=== PATIENT | male | born 1950 | race Caucasian/White ===

== ENCOUNTER → 2019-06-08 10:52 | Outpatient (BNVA) | payer MEDICARE, OTHER, SELFPAY | PROVIDERS: Family Provider Nurse Practitioner; PCP Nurse Practitioner; Visit Provider Nurse Practitioner | DX: I10 Essential (primary) hypertension (principal); J44.9 Chronic obstructive pulmonary disease, unspecified; E78.2 Mixed hyperlipidemia; K21.9 Gastro-esophageal reflux disease without esophagitis; G31.84 Mild cognitive impairment of uncertain or unknown etiology; J32.2 Chronic ethmoidal sinusitis; J30.1 Allergic rhinitis due to pollen | CPT/HCPCS: 80053; 80061; 81000 ==

== ENCOUNTER → 2019-12-14 09:35 | Outpatient (BNVA) | payer MEDICARE, OTHER, SELFPAY | PROVIDERS: Family Provider Nurse Practitioner; PCP Nurse Practitioner; Visit Provider Nurse Practitioner | DX: I10 Essential (primary) hypertension (principal); E78.2 Mixed hyperlipidemia; G31.84 Mild cognitive impairment of uncertain or unknown etiology; K21.9 Gastro-esophageal reflux disease without esophagitis; J30.1 Allergic rhinitis due to pollen; J44.9 Chronic obstructive pulmonary disease, unspecified | CPT/HCPCS: 80053; 80061 ==

== ENCOUNTER → 2020-05-22 09:07 | Outpatient (BNVA) | payer MEDICARE, OTHER, SELFPAY | PROVIDERS: Family Provider Nurse Practitioner; PCP Nurse Practitioner; Visit Provider Nurse Practitioner | DX: I10 Essential (primary) hypertension (principal); E78.2 Mixed hyperlipidemia; J44.9 Chronic obstructive pulmonary disease, unspecified; G31.84 Mild cognitive impairment of uncertain or unknown etiology; K21.9 Gastro-esophageal reflux disease without esophagitis; J30.1 Allergic rhinitis due to pollen | CPT/HCPCS: 80053; 80061 ==

== ENCOUNTER → 2020-05-31 15:40 | Outpatient (BNVA) | payer MEDICARE, OTHER, SELFPAY | PROVIDERS: Family Provider Nurse Practitioner; PCP Nurse Practitioner; Visit Provider Urology | DX: N39.9 Disorder of urinary system, unspecified (principal); Z12.5 Encounter for screening for malignant neoplasm of prostate; R33.9 Retention of urine, unspecified; R97.20 Elevated prostate specific antigen [PSA]; N52.9 Male erectile dysfunction, unspecified | CPT/HCPCS: 81003; G0103 ==

== ENCOUNTER 2020-09-19 09:44 | Outpatient (CLI) | payer MEDICARE, OTHER, SELFPAY ==
--- NOTE | 2020-09-19 10:03 | XR_ITS ---
WS: [id number] XR knee LT 3V* [id number] REASON FOR EXAM: L KNEE PAIN FINDINGS: No diffuse bony abnormality. No focal bone lesion. The medial knee joint space is well preserved. Mild subchondral sclerosis. There is mild narrowing of the lateral knee joint space. Mild subchondral sclerosis. The patellofemoral joint space is relatively well-preserved. Moderate enthesophyte at the attachment of the quadriceps tendon. XR/XR knee LT 3V* [id number] IMPRESSION: Mild changes of osteoarthritis.
== END 2020-09-19 09:45 | disposition home or self-care (01) ==
LOC: RAD 09:56
PROVIDERS: PCP Nurse Practitioner; Visit Provider Nurse Practitioner Family
DX: M25.562 Pain in left knee (principal)
CPT/HCPCS: 73562

== ENCOUNTER → 2020-11-15 10:21 | Outpatient (BNVA) | payer MEDICARE, OTHER, SELFPAY | PROVIDERS: PCP Nurse Practitioner; Visit Provider Nurse Practitioner | DX: I10 Essential (primary) hypertension (principal); E78.2 Mixed hyperlipidemia; G31.84 Mild cognitive impairment of uncertain or unknown etiology; K21.9 Gastro-esophageal reflux disease without esophagitis; J30.1 Allergic rhinitis due to pollen; J44.9 Chronic obstructive pulmonary disease, unspecified | CPT/HCPCS: 80053; 80061 ==

== ENCOUNTER 2021-01-10 12:55 | Outpatient (CLI) | payer MEDICARE, OTHER, SELFPAY ==
--- NOTE | 2021-01-10 13:30 | CT_ITS ---
WS: [id number] CT CHEST TECHNIQUE: Noncontrast CT of the chest with coronal and sagittal reformatted images. CLINICAL INFORMATION: J44.9 - Chronic obstructive pulmonary disease, unspecified COMPARISON: None. DLP: 941.[address] scans at [facility] use at least one of these dose optimization techniques: automated e xposure control; mA and/or kV adjustment per patient size (includes targeted exams where dose is matc hed to clinical indication); or iterative reconstruction. FINDINGS: Mild chronic emphysematous changes. No acute pulmonary infiltrates. No focal pneumonia. Slight bibasi lar atelectasis. A few calcified granulomas. Aortic coronary calcification. No mediastinal or hilar l ymphadenopathy. No axillary lymphadenopathy. Adrenal glands are normal. Hypertrophic changes thoracic spine. Tiny 3 mm noncalcified nodule right u pper lobe. Bibasilar atelectasis. Small amount of fluid or pleural thickening along the left fissure. CT/CT chest wo con [id number] IMPRESSION: 1. Mild chronic emphysematous changes. No acute pulmonary infiltrates. 2. Slight bibasilar atelectasis. Small amount of pleural fluid or thickening a long the left fissure. 3. Coronary calcification. 4. No other significant findings.
== END 2021-01-10 12:56 | disposition home or self-care (01) ==
LOC: CT 12:59
PROVIDERS: PCP Nurse Practitioner; Visit Provider Nurse Practitioner
DX: J44.9 Chronic obstructive pulmonary disease, unspecified (principal); J98.11 Atelectasis; I25.10 Atherosclerotic heart disease of native coronary artery without angina pectoris
CPT/HCPCS: 71250

== ENCOUNTER → 2021-05-30 10:10 | Outpatient (BNVA) | payer MEDICARE, OTHER, SELFPAY | PROVIDERS: PCP Nurse Practitioner; Visit Provider Nurse Practitioner | DX: I10 Essential (primary) hypertension (principal); E55.9 Vitamin D deficiency, unspecified | CPT/HCPCS: 80053; 80061; 81000; 82306; 84443 ==

== ENCOUNTER 2021-07-11 07:44 | Outpatient (CLI) | payer MEDICARE, OTHER, SELFPAY ==
--- NOTE | 2021-07-11 08:00 | USCV_ITS ---
Raul Patiño Age: 71 Gender: M : 1950 Exam Date: 07/11/2021 08:03 Ordering Phys: Lata Solis Technologist: LANDRY Exam Location: [facility] [place] Indication: c/o hx [place] 1999, s/p cardiac stent 1999. Patient states DR. OLIVEROS to parag. BP: 134 / 82 HR: 94 Rhythm: Sinus Technical Quality: Adequate MEASUREMENTS (Male / Female) Normal Values 2D ECHO LV Diastolic Diameter PLAX 4.5 cm 4.2 - 5.9 / 3.9 - 5.3 cm LV Systolic Diameter PLAX 3.3 cm IVS Diastolic Thickness 1.3 cm 0.6 - 1.0 / 0.6 - 0.9 cm IVS Systolic Thickness 2.5 cm LVPW Diastolic Thickness 0.9 cm 0.6 - 1.0 / 0.6 - 0.9 cm LVPW Systolic Thickness 0.9 cm LVOT Diameter 2.0 cm LV Ejection Fraction 2D Teich 51.2 % LV Ejection Fraction MOD 2C 68.0 % LV Ejection Fraction 2C AL 69.4 % LA Diameter 4.4 cm LA Width 3.8 cm LA Height 6.2 cm RA Width 3.0 cm RA Height 4.3 cm Aorta at Sinotubular Diameter 2.8 cm M-MODE Aortic Annulus Diameter 3.0 cm LA Ao Ratio MM 1.6 MV E Point Septal Separation 0.4 cm DOPPLER AV Peak Velocity 105.0 cm/s LVOT Peak Velocity 110.0 cm/s AV Area Cont Eq vti 3.2 cm squared AV Area Cont Eq pk 3.3 cm squared MV Peak Velocity 97.0 cm/s MV Area PHT 3.1 cm squared Mitral E to A Ratio 0.8 MV E' Velocity 42.5 cm/s Mitral E to MV E' Ratio 12.8 Mitral E to LV E' Lateral Ratio 11.8 Mitral E to LV E' Septal Ratio 13.9 TR Peak Velocity 293.5 cm/s TR Peak Gradient 34.5 mmHg TV Peak E Velocity 34.0 cm/s Right Atrial Pressure 10.0 mmHg Pulmonary Artery Systolic Pressu 44.5 mmHg PV Peak Velocity 125.0 cm/s FINDINGS Left Ventricle Normal left ventricular size and systolic function, EF 66 %. No regional wall motion abnormalities. Grade I/IV diastolic dysfunction (abnormal relaxation filling pattern), normal to mildly elevated filling pressures. Right Ventricle The right ventricle is normal in size and function. Right Atrium The right atrium is normal in size. Left Atrium Mildly increased left atrial size. Mitral Valve Minimally thickened mitral valve Aortic Valve Thickened aortic valve. Tricuspid Valve Moderate tricuspid valve regurgitation. Pulmonic Valve Trace pulmonary valve regurgitation. Pericardium Normal pericardium without effusion. Aorta Normal ascending aorta dimension. IVC The inferior vena cava pulmonary and hepatic veins appear normal. CONCLUSIONS Normal left ventricular size and systolic function, EF 66 %. No regional wall motion abnormalities. Grade I/IV diastolic dysfunction (abnormal relaxation filling pattern), normal to mildly elevated filling pressures. Mildly increased left atrial size. Moderate tricuspid valve regurgitation. Minimally thickened aortic and mitral valves Trace pulmonary valve regurgitation. There is no pericardial effusion. Pulmonary artery systolic pressure is within normal limits. No similar previous studies are available for comparison Dr Mihai Oliveros MD FACC (Electronically Signed) Final Date: 11 Jul 2021 18:02 S
== END 2021-07-11 07:45 | disposition home or self-care (01) ==
LOC: RAD 07:47
PROVIDERS: PCP Nurse Practitioner; Visit Provider Nurse Practitioner
DX: I10 Essential (primary) hypertension (principal); R53.83 Other fatigue
CPT/HCPCS: 93306

== ENCOUNTER → 2021-09-26 10:10 | Outpatient (BNVA) | payer MEDICARE, OTHER, SELFPAY | PROVIDERS: PCP Nurse Practitioner; Visit Provider Internal Medicine Cardiovascular Disease | DX: I25.118 Atherosclerotic heart disease of native coronary artery with other forms of angina pectoris (principal); I10 Essential (primary) hypertension; E78.2 Mixed hyperlipidemia; J44.9 Chronic obstructive pulmonary disease, unspecified; R00.1 Bradycardia, unspecified; I44.0 Atrioventricular block, first degree | CPT/HCPCS: 93005; 99204 ==

== ENCOUNTER 2021-10-04 08:47 | Outpatient (CLI) | payer MEDICARE, OTHER, SELFPAY ==
--- NOTE | 2021-10-04 | ECG_ITS ---
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 Interpretive Statements NAME OF STUDY: LEXISCAN SESTAMIBI STRESS TEST INDICATION: FATIGUE PROCEDURE: At the baseline, the EKG revealed normal sinus rhythm with some nonspecific T wave changes.. The baseline blood pressure was 173/91 mm Hg with a heart rate of 63 beats/min. Lexiscan was infused over a period of 20 seconds. A total of 0.4 milligrams of Lexiscan was infused. The stress phase was continued for a total of 5 minutes. Heart rate at the end of the stress phase was 80 with a blood pressure 179/75. The EKG at the peak infusion revealed no significant changes. Sestamibi was injected 20 seconds after the Lexiscan infusion. Blood pressure at the end of the recovery phase was 181/82 with a heart rate of 72 per minute. CONCLUSION: 1. No significant EKG changes with the LexiScan infusion 2. No LexiScan induced chest pain or cardiac arrhythmia 3. Normal blood pressure and heart rate response 4. Sestamibi/sestamibi perfusion scan pending; see separate report. Electronically Signed On 10-12-2021 15:44:03 CDT by Mihai Carrero M.D. [id number]
--- NOTE | 2021-10-04 08:57 | NMCV_ITS ---
NM kleber perf SPECT r/s* [id number] Raul Patiño Age: 71 Gender: M : 1950 Exam Date: 10/04/2021 10:29 Ordering Phys: Mihai Carrero MD ([email or web address]) Technologist: KADEN Wise Exam Location: [facility] Indications: CORONARY ANGIOPLASTY STATUS STRESS TEST Please see separate stress test report in [facility] for full findings IMAGE PROTOCOL Rest/Stress 1 Lexiscan Day Radiopharmaceutical Dose (mCi) Administration Site Administered by Rest: Tc-99m 10.6 IV KADEN Wise Sestamibi Stress:Tc-99m 32.7 IV KADEN Anderson Sestamibi Rest: 04-Oct-2021 60 Discovery 630 Stress: 04-Oct-2021 30 Discovery 630 0.4mg Lexiscan. Images obtained in supine and prone position. SPECT RESULTS Technical Quality: Excellent Raw Data Analysis: Normal Image Corrections: No attenuation or motion correction applied Summed Stress Score: 15 Summed Rest Score: 19 Summed Difference Score: 1 PERFUSION FINDINGS Moderate to large area of moderate to severely decreased tracer uptake in the basal, mid and apical inferior; basal and mid inferolateral; apical lateral, apical septal and mid anteroseptal segments. A subtle area of reversibility was noted in the mid anteroseptal region FUNCTIONAL RESULTS (calculated via Gated SPECT) Stress Image LV EF (%): 73 Stress EDV (mL):84 TID: 0.96 Stress ESV (mL):23 FUNCTIONAL FINDINGS: Segmental wall motion analysis revealed no gross wall motion normalities. IMPRESSIONS 1. Myocardial perfusion imaging revealing moderate to large area of persistent decreased tracer uptake in the inferior, inferolateral and apical regions, suggesting myocardial scarring versus attrition artifact in the distribution of the right coronary artery / left circumflex artery. A very small area of reversibility in the mid anteroseptal region, suggestive of ischemia in the distribution of the left anterior descending artery 2. Normal LV ejection fraction of 73%. 3. LV wall motion analysis revealing no gross wall motion abnormality. 4. Normal LV volume. No similar previous studies are available for comparison Dr Mihai Carrero MD FAC (Electronically Signed) Final Date: 04 October 2021 22:36 S
[2021-10-04 09:10] VITALS: BMI 32.6
[2021-10-04] MEDS: regadenoson 0.4 Mg/5 ml Syringe IVP (10:53)
[2021-10-04 11:22] VITALS: BP 179/79; PULSE 74
== END 2021-10-04 08:48 | disposition home or self-care (01) ==
LOC: CDL 08:48
PROVIDERS: PCP Nurse Practitioner; Visit Provider Internal Medicine Cardiovascular Disease
DX: R53.83 Other fatigue (principal); Z98.61 Coronary angioplasty status; I25.118 Atherosclerotic heart disease of native coronary artery with other forms of angina pectoris
CPT/HCPCS: 78452; 93017; A9500; J2785

== ENCOUNTER 2021-10-08 10:17 | Outpatient (CLI) | payer MEDICARE, OTHER, SELFPAY ==
[2021-10-08 10:45] LABS: Basophils # 0.1 10^3/uL (0.0-0.1); Basophils % 0.9 %; Eosinophils # 0.1 10^3/uL (0.0-0.8); Eosinophils % 1.7 %; Hematocrit 49.9 % (42.0-52.0); Lymphocytes # 1.7 10^3/uL (0.8-4.8); Lymphocytes % 21.1 %; Mean Corpuscular HGB Conc 32.1 g/dL (30.0-36.0); Mean Corpuscular Hemoglobin 28.5 pg (28.0-34.0); Mean Corpuscular Volume 88.9 fl (80-94); Monocytes # 0.8 10^3/uL (0.2-0.9); Monocytes % 9.3 %; Neutrophils # 5.45 10^3/uL (1.8-7.7); Neutrophils % 66.6 %; Nucleated Red Blood Cells % 0 %; Platelet Count 245 10^3/cmm (130-400); Red Blood Count 5.61 10^6/uL (4.1-5.3); Red Cell Distribution Width 13.2 % (12.1-15.1); White Blood Count 8.2 10^3/uL (4.0-10.0)
[2021-10-08 10:58] LABS: INR 0.95 (0.83-1.21)
[2021-10-08 11:09] LABS: Anion Gap 15.4 (5-19); Blood Urea Nitrogen 18 mg/dL (8-23); Calcium 9.4 mg/dL (8.5-10.5); Carbon Dioxide 28 mmol/L (22-29); Chloride 102 mmol/L (98-107); Glucose 95 mg/dL (65-115); Osmolality Calculated 292 mOsm/kg (285-295); Potassium 5.4 mmol/L (3.5-5.1); Sodium 140 mmol/L (136-145)
== END 2021-10-08 10:18 | disposition home or self-care (01) ==
LOC: LAB 10:19
PROVIDERS: PCP Internal Medicine Cardiovascular Disease; Visit Provider Internal Medicine Cardiovascular Disease
DX: Z01.812 Encounter for preprocedural laboratory examination (principal); E78.2 Mixed hyperlipidemia; I25.118 Atherosclerotic heart disease of native coronary artery with other forms of angina pectoris; J44.9 Chronic obstructive pulmonary disease, unspecified; I10 Essential (primary) hypertension; R58 Hemorrhage, not elsewhere classified
CPT/HCPCS: 36415; 80048; 85025; 85610; 86850; 86900

== ENCOUNTER 2021-10-11 10:54 | Observation (INO) | payer MEDICARE, OTHER, SELFPAY ==
[2021-10-11] VITALS (15 sets, daily range): BP systolic 128–193; BP diastolic 54–85; PULSE 58–78; RESP 13–25; TEMP 36.8–37.2; O2SAT 89–96; BMI 32.7
--- NOTE | 2021-10-11 07:30 | XACV_ITS ---
Exam Room: 2 Ht: 180 cm Wt: 106 kg BSA: 2.34 m2 Gender: Male : 1950 Any Known Allergies: Ibuprofen Exam Priority: Routine Procedure(s): Procedure Description: Diagnostic procedure Procedure Description: PCI procedure Procedure Description: Left Heart Catheterization Procedure Description: PTCA Procedure Description: Miscellaneous Procedure Description: ACT Procedure Description: Coronary Angiography Magan PALACIOS; Diagnostic Cath Status: Elective Diagnostic Findings * Left main is a medium to large caliber vessel which was found to have around 30% distal eccentric narrowing. * The left anterior descending artery is a medium caliber vessel which appears to wrap around the LV apex minimally. It gives off a high diagonal branch which appears to bifurcate proximally. Just before the bifurcation, there was found to be high-grade lesion with some filling defect. The proximal LAD was found to have 20 to 30% diffuse narrowing. No significant stenotic lesions were noted. * The left circumflex artery is a medium caliber vessel with some ostial narrowing for an 20%. The first obtuse marginal branch was found to have minimal regularities proximally. No significant is noted lesions were noted. * The intermedius artery(high obtuse marginal branch) was found to have diffuse irregular narrowing. No significant stenotic lesions were noted. * The right coronary artery is a medium to large caliber dominant vessel which was found to have around 30 to 40% irregular narrowing of the mid segment. Diffuse intimal irregularities are noted in the PDA and the PLV branches. PCI Status: Elective PCI Indication: Other Interventional Findings * Procedure detail: We engaged left main artery with XB 3.0 guide catheter. IV heparin was administered to maintain ACT above 250 s. Using 0.014 run-through guidewire we crossed the diagonal artery stenosis and was put in distal vessel. We dilated stenosis with 2.5 x 12 mm semicompliant balloon. This was followed by dilation with 2.75 x 12 mm noncompliant balloon. This improved the flow significantly. We decided not to stent because of location of stenosis being very close to LAD with potential to compromise LAD with a stent. Guidewire and guide catheter were removed. 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 * 1st Diagonal: 80% stenosis treated with a AB TREK 2.50X12 RX BALLOON, and MDT NC EUPHORA RX 2.43U44JU BALLOON. 0% residual stenosis, CHARLINE: 3 flow. Conclusions 1. This 71-year-old white male with history of coronary disease and previous PCI, now presented with increasing chest discomfort, shortness of breath and fatigue. He had a Myocardial perfusion imaging which revealed a areas of fixed defect in the inferolateral wall region with small area of reversible defect in the distribution of the left anterior descending artery. In view of the patient's ongoing symptoms, in order to further evaluate his coronary status, a cardiac catheterization was recommended. Patient underwent left heart catheterization with left and right coronary angiogram today. The findings are as follows. 2. High-grade lesion in the proximal segment of the first diagonal branch of the left anterior descending artery. 30% distal left main disease. Mild diffuse disease in the other vessels. Evidence of left ventricular diastolic dysfunction with an LVEDP of 24 mmHg. Based on the elbow angiographic findings findings, it was thought to be appropriate to consider PCI of the diagonal lesion. I reviewed and discussed the cardiac catheterization data with the Dr. Nunes who concurred with this plan. Dr. Nunes took over further management of this patient at this point. 3. Proximal diagonal artery stenosis treated with balloon angioplasty. Stent not brought in because of location of stenosis close to LAD with potential to compromise blood flow in LAD. 4. 1st Diagonal was treated with a Balloon, and Balloon. Recommendations * Dual antiplatelet therapy. * High intensity statin therapy. * Aggressive risk factor modification. * Outpatient cardiology follow-up in 4 weeks. Interventional RX Recommendation: PCI w/o planned CABG Diagnostic RX Recommendation: PCI w/o planned CABG LV EDP: 24 mmHg Left Ventriculography Findings: * LV gram was not performed because of the concern of the limitations on dye usage. LVEDP was 24 mmHg. Pressures Phase:Rest AO : 152 / 52 ( 91 ) @ 10:34:00 AM LV : 157 / -5 / 24 @ 10:34:00 AM Clinical Evaluation EBL: 5mL-10mL Procedural Details Procedure Consent Obtained. Admit Source: Out Patient. Pre-Procedure Time Out. Identified patient by full name and date of as verbalized by the patient/guarantor. Does the consent match the physician's order: Yes. Accurate & Complete Informed Consent: Yes. Inpatient/Outpatient History & Physical on Chart: Yes. If H&P is completed, is and addenduem needed: No; If yes, is the addendum complete: N/A. Visualize and Verify Site with Patient/Guarantor: N/A. Relevant Radiology Images available: N/A. The risks, benefits, and alternatives of sedation and/or procedure were discussed by physician. The patient agrees to continue. Procedure started. IV Site on Arrival: 20 gauge in the right anticubital. IV Fluids: 0.9% NaCl at KVO. 0 mL infused prior to earthmoving labourer. Pre Procedural Pulses: right radial was 3+. Pre Procedural Pulses: bilateral posterior tibial was 3+. Pre Procedural Pulses: bilateral dorsalis pedis was 3+. Oxygen started at 2liters/min via nasal canula. right radial was prepped with chloroprep then draped in the usual sterile fashion. right groin was prepped with chloroprep then draped in the usual sterile fashion. Physician notified. Baseline sample Acquired. HR: 60 BPM. PERRLA. Strong, equal hand sfdc consultant bilaterally. Lungs clear x 5 lobes. Correct patient, site and procedure confirmed by cath team. Physician arrived. [facility] Clinical Fraility Score: 2: Well. 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 Chest Pain Symptom Assessment: Typical Angina Symptoms. Current diagnosis: Chest Pain, Abnormal stress test, ASHD. Physician scrubbed in. Immediate Pre-Procedure Time Out. Correct Patient: Yes; Correct Procedure: Yes; Correct Site: Yes; Correct Patient Position: Yes; Correct Supplies: Yes; Dried Flammable Prep: Yes; Blood Products Available: No;. Lidocaine 1% infiltrated to the right radial. Arterial access obtained. A 5 hungarian Yeison catheter in over wire. EDP Sample taken: LV 157/-6,24; HR: 53 BPM; SpO2: 97%. Pullback taken: LV Off; AO Off; Mean: , Peak to Peak: , SEP: ; HR: 59 BPM; SpO2: 97%. Catheter redirected to the LCA. Catheter redirected to the RCA. Multiple views taken of right coronary artery. Catheter redirected to the LCA. Catheter removed over the standard wire. A 5 hungarian TIG catheter in over wire. Catheter directed to the LCA. Multiple views taken of left coronary artery. Physician review of cine films. Dr. Nunes called to lab to review cine films. Catheter out. Dr. Nunes arrived to review films. Dr. Carrero scrubbed out. Patient's family updated. Dr. Nunes scrubbed in. 6 hungarian XB 3.5 guide catheter was inserted over the wire. standard wire out. Angiography performed. Runthrough guidewire was advanced through the guide catheter to lesion in the diaganol. Guidewire advanced across lesion. Inflation number : 1 A AB TREK 2.50X12 RX BALLOON was prepped and advanced across the 1st Diag , then inflated to 14 JULY for 0:18 seconds. Inflation number: 2 The AB TREK 2.50X12 RX BALLOON was reinflated across the 1st Diag, to 14 JULY for 0:17 seconds. Balloon out. Inflation number : 3 A MDT NC EUPHORA RX 2.94F80UI BALLOON was prepped and advanced across the 1st Diag , then inflated to 12 JULY for 0:26 seconds. Balloon out. Runthrough wire out. Angiography performed, checkings results. ACT drawn. Results 284 seconds. Therapeutic limits - pre-heparin administration 90-150 seconds and monitoring heparin during a vascular procedure >250 seconds. A TR Band was successful obtaining hemostatsis at the Right Radial artery insertion site. Guide catheter out. Post Procedure: Pulses reassessed and unchanged. PERRLA. Strong, equal hand sfdc consultant bilaterally. No VTE prophylaxis required. Medication's Wasted: Nitro = 49.6 mg. Medication's Wasted: Heparin = 1000 unit. Total IV fluids: 80 mL. 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 Complications: None. Estimated blood loss: 5mL-10mL. Airway - Unaffected, no intervention required; spontaneous ventilation. Responsiveness - Normal response to verbal stimuli; alert and oriented, PERRLA. Circulation: W/N/L, pulses unchanged. Nausea/Vomiting: N/A. Procedure completed. Patient transferred by wheelchair to ICU. Vital chart was stopped. Access Site Site: Right Radial artery Sheath Size: 6 Fr Hemostasis Method: TR Band Hemostasis Success: Successful Procedure Medications Start: 9:22 AM Stop: 9:22 AM Medication: Fentanyl Amount: 50 mcg Route: I.V. Start: 9:23 AM Stop: 9:23 AM Medication: Versed Amount: 1 mg Route: I.V. Start: 9:31 AM Stop: 9:31 AM Medication: Verapamil Amount: 5 mg Route: I.A. Start: 9:31 AM Stop: 9:31 AM Medication: Nitrogylcerin Amount: 200 mcg Route: I.A. Start: 9:37 AM Stop: 9:37 AM Medication: Heparin Amount: 5000 units Route: I.V. Start: 9:48 AM Stop: 9:48 AM Medication: Versed Amount: 1 mg Route: I.V. Start: 9:59 AM Stop: 9:59 AM Medication: Versed 1 mg and Fentanyl 25 mcg Amount: 1 Route: I.V. Start: 10:06 AM Stop: 10:06 AM Medication: Heparin Amount: 5000 units Route: I.V. Start: 10:19 AM Stop: 10:19 AM Medication: Nitrogylcerin Amount: 200 mcg Route: I.C. Start: 10:27 AM Stop: 10:27 AM Medication: Aspirin Amount: 325 mg Route: P.O. Start: 10:27 AM Stop: 10:27 AM Medication: Plavix Amount: 300 mg Route: P.O. I, the attending physician, have reviewed and verified all procedure medications. Yes, all medications given per verbal order History/Risk Factors Hypertension: Yes Dyslipidemia: Yes Peripheral Arterial Disease (PAD): No Myocardial Infarction (VT): No Renal Disease: No Tobacco Use: Former Prior Interventions PCI: Yes CABG: No Valve Surgery: No Report Signatures Interventional Workflow Finalized by Bishnu Nunes MD on 10/23/2021 12:17 PM Diagnostic Workflow Finalized by Dr Mihai Carrero MD [facility] on 10/11/2021 09:22 PM
--- NOTE | 2021-10-11 08:29 | W.PM.OPSUD ---
Surgery/Procedure H&P Update DATE OF PROCEDURE: October 11, 2021 DATE H&P PERFORMED: 09/26/21 H&P UPDATE INFORMATION: I have reviewed H&P completed within last 30 days, I have examined patient prior to procedure and No changes to prior documentation PREOP DIAGNOSIS: ASHD PRIMARY INDICATION FOR PROCEDURE: Patient with chest pain, history of ASHD and previous PCI, abnormal Myocardial perfusion imaging PLANNED PROCEDURE: Operation Date: 10/11/21 08:30 Proposed Procedures p [facility] 58880,R94.39,I25.119(Left) - Mihai Carrero MD PATIENT REASSESSED PRIOR TO SEDATION, WITH NO CHANGE NOTED: Yes PHYSICAL EXAM: alert, oriented x 3, clear to auscultation bilaterally and regular rate & rhythm AIRWAY EVAL/ANESTHESIA PLAN: normal airway, see other exam findings, ASA II, Monitored Anesthesia, Local Anesthesia, Risks, benefits & alternatives of sedation and/or procedure discussed and Patient agrees to continue as planned
--- NOTE | 2021-10-11 11:44 | PC.NURSE ---
To Unit Pt brought to unit by CCL nurses via wheelchair. Pt is alert and oriented. Pt has TR band with 15ml to right wrist. Pt oriented to room. Call light within reach. Family is at bedside.
[2021-10-11] MEDS: ondansetron 2 mg/ML SDV 2 mL 4 MG IVP (17:40)
--- NOTE | 2021-10-11 18:38 | PC.NURSE ---
PT HAS HAD A GOOD UNEVENTFUL SHIFT. TR BAND REMOVED AT 1838. NO BLEEDING NOTED. SITE CLEANED AND A 2X2 AND BANDAID WAS APPLIED. PT HAS HAD ADEQUATE INTAKE AND OUTPUT. PT HAS NO COMPLAINTS OF PAIN. PT CURRENTLY RESTING IN BED. PT HAS NO REQUESTS AT THIS TIME. WILL CONTINUE TO MONITOR.
[2021-10-11] MEDS: amlodipine 5 mg Tablet PO (19:34)
[2021-10-11] MEDS: famotidine 20 mg Tablet 40 MG PO (20:02)
--- NOTE | 2021-10-11 22:16 | PC.NURSE ---
Pt reports that there was a small amount of blood on toilet paper after wiping. He denies history of hemorrhoids. He denies any blood, black stool being seen in toilet. If patient has another bowel movement, he will let nursing inspect prior to flushing.
--- NOTE | 2021-10-11 23:14 | PC.NURSE ---
Bedside shift change report received from MEDINA Lockett.
[2021-10-12] VITALS (43 sets, daily range): BP systolic 121–154; BP diastolic 50–76; PULSE 64–83; RESP 11–26; TEMP 36.8; O2SAT 87–97
--- NOTE | 2021-10-12 00:43 | PC.NURSE ---
Pt's HOB increased to 30 degrees. Pt snoring.
--- NOTE | 2021-10-12 01:12 | PC.NURSE ---
Oxygen at 2L applied per nasal cannula due to sustained saturation of 89%.
--- NOTE | 2021-10-12 01:58 | PC.NURSE ---
Pt continues to snore, but oxygen saturation on 2L nasal cannula is 97%. Oxygen decreased to 1 L per nasal cannula.
[2021-10-12 05:37] LABS: Basophils % 0.3 %; Eosinophils # 0.2 10^3/uL (0.0-0.8); Eosinophils % 2.8 %; Hemoglobin 14.3 g/dL (11.7-16.6); Lymphocytes # 1.1 10^3/uL (0.8-4.8); Lymphocytes % 14.9 %; Mean Corpuscular HGB Conc 31.8 g/dL (30.0-36.0); Mean Corpuscular Hemoglobin 28.6 pg (28.0-34.0); Mean Platelet Volume 8.9 fL (7.4-10.4); Monocytes # 0.6 10^3/uL (0.2-0.9); Monocytes % 7.9 %; Neutrophils # 5.59 10^3/uL (1.8-7.7); Neutrophils % 73.8 %; Nucleated Red Blood Cells % 0 %; Platelet Count 178 10^3/cmm (130-400); Red Cell Distribution Width 13.4 % (12.1-15.1); White Blood Count 7.6 10^3/uL (4.0-10.0)
--- NOTE | 2021-10-12 05:45 | PC.NURSE ---
Pt resting quietly in bed with eyes closed. No complaints of chest pain or soa. Skin is pink and dry.
[2021-10-12 05:52] LABS: Blood Urea Nitrogen 15 mg/dL (8-23); Calcium 9.2 mg/dL (8.5-10.5); Carbon Dioxide 27 mmol/L (22-29); Chloride 103 mmol/L (98-107); Glucose 117 mg/dL (65-115); Osmolality Calculated 292 mOsm/kg (285-295); Sodium 140 mmol/L (136-145)
[2021-10-12 06:00] LABS: Anion Gap 14.8 (5-19); Potassium 4.8 mmol/L (3.5-5.1)
[2021-10-12] MEDS: atorvastatin 40 mg Tablet 20 MG PO (08:45)
[2021-10-12] MEDS: montelukast sodium 10 mg Tablet PO (08:46)
[2021-10-12] MEDS: donepezil 5 MG Tablet PO (08:46)
[2021-10-12] MEDS: aspirin 81 mg EC Tablet PO (08:46)
[2021-10-12] MEDS: metoprolol succinate ER (24 HR) 50 mg Tablet PO (08:46)
[2021-10-12] MEDS: famotidine 20 mg Tablet 40 MG PO (08:54)
--- NOTE | 2021-10-12 09:31 | PM.PN ---
Subjective Subjective: Patient underwent cardiac catheterization yesterday. He was found to have a high-grade lesion in the first diagonal branch. He underwent a plain old balloon angioplasty. Currently he seems to be doing okay. Blood pressure seems to be elevated. Medications: Medication Review Details: Current Medications Albuterol Sulfate (Albuterol 8 Gm Mdi) 2 puff INHALATION Q6H PRN PRN Reason: shortness of breath or wheezing Aspirin (Aspirin 81 Mg Ec Tablet) 81 mg PO DAILY [facility] Last Admin: 10/12/21 08:46 Dose: 81 mg Atorvastatin Calcium (Atorvastatin 40 Mg Tablet) 20 mg PO DAILY [facility] Last Admin: 10/12/21 08:45 Dose: 20 mg Donepezil HCl (Donepezil 5 Mg Tablet) 5 mg PO DAILY [facility] Last Admin: 10/12/21 08:46 Dose: 5 mg Famotidine (Famotidine 20 Mg Tablet) 40 mg PO BID@0900,2100 [facility] Last Admin: 10/12/21 08:54 Dose: 40 mg Hydralazine HCl (Hydralazine 20 Mg/Ml Inj 1 Ml) 10 mg IVP Q4H PRN PRN Reason: HYPERTENSION Metoprolol Succinate (Metoprolol Succinate Er (24 Hr) 50 Mg Tablet) 50 mg PO DAILY [facility] Last Admin: 10/12/21 08:46 Dose: 50 mg Montelukast Sodium (Montelukast Sodium 10 Mg Tablet) 10 mg PO DAILY [facility] Last Admin: 10/12/21 08:46 Dose: 10 mg Non-Formulary Medication (Olmesartan [Benicar]) 20 mg PO DAILY [facility] Last Admin: 10/12/21 08:54 Dose: Not Given Ondansetron HCl (Ondansetron 2 Mg/Ml Sdv 2 Ml) 4 mg IVP Q4H PRN PRN Reason: NAUSEA AND VOMITING Last Admin: 10/11/21 17:40 Dose: 4 mg Vitals/I&O/Wt Last Vital Signs Temp 98.3 F 10/12/21 06:35 Pulse 68 10/12/21 08:40 Resp 16 10/12/21 08:40 BP 145/76 10/12/21 08:40 Pulse Ox 92 10/12/21 08:40 O2 Del Method 10/12/21 08:00 O2 Flow Rate 1 10/12/21 06:15 08/10/12/21 10/12/21 22:59 06:59 14:59 Intake Total 1070 / 1070 520 / 1590 Output Total 1100 / 1100 1800 / 2900 100 / 100 Balance -30 / -30 -1280 / -1310 -100 / -100 Weight last 48 hrs Weight 234 lb 8 oz Weight 234 lb 8 oz Physical Exam Narrative: GENERAL: The patient is alert and oriented times three. Not in any acute distress. HEENT: No significant pallor, icterus or lymphadenopathy.Oral cavity: There are no mucous membrane lesions. NECK: Trachea appears to be central. No masses noted. No JVD or thyromegaly appreciated. RESPIRATORY: Chest is symmetrical. No intercostals muscle retraction or any accessory muscle activation. There is no chest wall tenderness. Breath sounds are heard bilaterally. No rales or rhonchi heard. No evidence of any consolidation. BREASTS: Deferred. HEART: The heart sounds are normal. No S3 or S4. No significant murmurs. No pericardial rub ABDOMEN: No vessel pulsations or distention. No tenderness. No organomegaly appreciated. Bowel sounds are normally heard. : Deferred. RECTAL: Deferred. LYMPHATIC: No lymphadenopathy noted in the neck. EXTREMITIES: No edema or cyanosis. No clubbing. No hematoma bleeding of the radial arterial puncture site. MUSCULOSKELETAL: No acute joint deformities or swelling SKIN: There are no significant rashes or ecchymosis NEUROPSYCHIATRIC: The patient is alert and oriented x3. Appears to be in a good mood. No tremors or rigidity noted. Data : 10/12/21 05:02 10/12/21 05:02 A&P Assessment and plan (1) Atherosclerotic heart disease of [place] coronary artery with other forms of angina pectoris: Patient status post PCI of the diagonal artery lesion. Further details of the coronary angiogram, please refer to report from yesterday. Status: Acute (2) Essential (primary) hypertension: For better control of the blood pressure, I may increase the dose of the olmesartan to 40 mg p.o. daily. Other medications may be continued as it is. Status: Chronic (3) Mixed hyperlipidemia: May continue on the current medications. Status: Chronic (4) COPD (chronic obstructive pulmonary disease): May continue on the current management. Status: Chronic Plan If the patient continues to remain stable, will be discharged home today. 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
[2021-10-12] MEDS: amlodipine 5 mg Tablet 2.5 MG PO (09:47)
== END 2021-10-12 10:46 | disposition home or self-care (01) ==
LOC: ICU 10:55
PROVIDERS: Internal Medicine; Admitting Provider Internal Medicine Cardiovascular Disease; PCP Internal Medicine Cardiovascular Disease; Visit Provider Internal Medicine Cardiovascular Disease
DX: I25.118 Atherosclerotic heart disease of native coronary artery with other forms of angina pectoris (principal); I10 Essential (primary) hypertension; E78.2 Mixed hyperlipidemia; J44.9 Chronic obstructive pulmonary disease, unspecified; Z79.82 Long term (current) use of aspirin
CPT/HCPCS: 36415; 80048; 85025; 85347; 92920; 93452; 93458; 96360; 99152; 99153; C1725; C1769; C1887; C1894; G0378; J1644; J2250; J2405; J3010; J3490; J7030; Q0163; Q9967

== ENCOUNTER → 2021-10-18 15:16 | Outpatient (BNVA) | payer MEDICARE, OTHER, SELFPAY | PROVIDERS: PCP Nurse Practitioner; Visit Provider Nurse Practitioner Family | DX: I25.118 Atherosclerotic heart disease of native coronary artery with other forms of angina pectoris (principal) | CPT/HCPCS: 36415; 80048; 99214 ==

== ENCOUNTER 2021-10-30 08:39 | Outpatient (CLI) | payer MEDICARE, OTHER, SELFPAY ==
[2021-10-30 09:25] LABS: Anion Gap 10.4 (5-19); Blood Urea Nitrogen 14 mg/dL (8-23); Calcium 8.9 mg/dL (8.5-10.5); Carbon Dioxide 28 mmol/L (22-29); Chloride 103 mmol/L (98-107); Glucose 94 mg/dL (65-115); Osmolality Calculated 284 mOsm/kg (285-295); Potassium 4.4 mmol/L (3.5-5.1); Sodium 137 mmol/L (136-145)
== END 2021-10-30 08:40 | disposition home or self-care (01) ==
LOC: LAB 08:42
PROVIDERS: PCP Nurse Practitioner; Visit Provider Nurse Practitioner Family
DX: I25.118 Atherosclerotic heart disease of native coronary artery with other forms of angina pectoris (principal)
CPT/HCPCS: 36415; 80048

== ENCOUNTER → 2021-11-09 08:16 | Outpatient (BNVA) | payer MEDICARE, OTHER, SELFPAY | PROVIDERS: PCP Nurse Practitioner; Visit Provider Nurse Practitioner | DX: E78.2 Mixed hyperlipidemia (principal); I10 Essential (primary) hypertension; N52.9 Male erectile dysfunction, unspecified; J44.9 Chronic obstructive pulmonary disease, unspecified; G31.84 Mild cognitive impairment of uncertain or unknown etiology; J30.1 Allergic rhinitis due to pollen; I25.118 Atherosclerotic heart disease of native coronary artery with other forms of angina pectoris; E55.9 Vitamin D deficiency, unspecified | CPT/HCPCS: 80053; 80061; 82306; 84443 ==

== ENCOUNTER 2021-12-03 11:00 | Outpatient (CLI) | payer MEDICARE, OTHER, SELFPAY | END 2021-12-03 11:01 | disposition home or self-care (01) | LOC: SLEEP 12-04 10:46 | PROVIDERS: PCP Nurse Practitioner; Visit Provider Internal Medicine Cardiovascular Disease | DX: G47.19 Other hypersomnia (principal); R09.02 Hypoxemia; G47.33 Obstructive sleep apnea (adult) (pediatric) | CPT/HCPCS: G0399 ==

== ENCOUNTER → 2021-12-26 09:56 | Outpatient (BNVA) | payer MEDICARE, OTHER, SELFPAY | PROVIDERS: PCP Nurse Practitioner; Visit Provider Internal Medicine Cardiovascular Disease | DX: I25.10 Atherosclerotic heart disease of native coronary artery without angina pectoris (principal); I10 Essential (primary) hypertension; E78.2 Mixed hyperlipidemia; J44.9 Chronic obstructive pulmonary disease, unspecified | CPT/HCPCS: 99214 ==

== ENCOUNTER 2022-03-04 20:00 | Outpatient (CLI) | payer MEDICARE, OTHER, SELFPAY | END 2022-03-04 20:01 | disposition home or self-care (01) | LOC: SLEEP 03-05 03:16 | PROVIDERS: PCP Nurse Practitioner; Visit Provider Internal Medicine Cardiovascular Disease | DX: G47.33 Obstructive sleep apnea (adult) (pediatric) (principal) | CPT/HCPCS: 95811 ==

== ENCOUNTER → 2022-04-19 10:17 | Outpatient (BNVA) | payer MEDICARE, OTHER, SELFPAY | PROVIDERS: PCP Nurse Practitioner; Visit Provider Nurse Practitioner | DX: I10 Essential (primary) hypertension (principal); Z12.5 Encounter for screening for malignant neoplasm of prostate; E78.2 Mixed hyperlipidemia; J44.9 Chronic obstructive pulmonary disease, unspecified; G31.84 Mild cognitive impairment of uncertain or unknown etiology; I25.118 Atherosclerotic heart disease of native coronary artery with other forms of angina pectoris; K21.9 Gastro-esophageal reflux disease without esophagitis; J30.1 Allergic rhinitis due to pollen; B35.4 Tinea corporis; G47.33 Obstructive sleep apnea (adult) (pediatric); Z99.89 Dependence on other enabling machines and devices | CPT/HCPCS: 80053; 80061; 81000; 84443; 85025; G0103 ==

== ENCOUNTER → 2022-07-10 09:55 | Outpatient (BNVA) | payer MEDICARE, OTHER, SELFPAY | PROVIDERS: PCP Nurse Practitioner; Visit Provider Internal Medicine Cardiovascular Disease | DX: I25.10 Atherosclerotic heart disease of native coronary artery without angina pectoris (principal); G47.33 Obstructive sleep apnea (adult) (pediatric); Z99.89 Dependence on other enabling machines and devices; I10 Essential (primary) hypertension; E78.2 Mixed hyperlipidemia; K21.9 Gastro-esophageal reflux disease without esophagitis | CPT/HCPCS: 99214 ==

== ENCOUNTER → 2022-09-02 11:40 | Outpatient (BNVA) | payer MEDICARE, OTHER, SELFPAY | PROVIDERS: PCP Nurse Practitioner; Visit Provider Nurse Practitioner | DX: J44.9 Chronic obstructive pulmonary disease, unspecified (principal); E78.2 Mixed hyperlipidemia; G31.84 Mild cognitive impairment of uncertain or unknown etiology; I25.118 Atherosclerotic heart disease of native coronary artery with other forms of angina pectoris; K21.9 Gastro-esophageal reflux disease without esophagitis; I10 Essential (primary) hypertension; J30.1 Allergic rhinitis due to pollen; E55.9 Vitamin D deficiency, unspecified | CPT/HCPCS: 80053; 80061; 82306; 84443; 85025 ==

== ENCOUNTER → 2023-01-22 12:20 | Outpatient (BNVA) | payer MEDICARE, OTHER, SELFPAY | PROVIDERS: PCP Nurse Practitioner; Visit Provider Nurse Practitioner Family | DX: I25.10 Atherosclerotic heart disease of native coronary artery without angina pectoris (principal); I10 Essential (primary) hypertension; E78.2 Mixed hyperlipidemia; Z79.82 Long term (current) use of aspirin | CPT/HCPCS: 99214 ==

== ENCOUNTER → 2023-02-10 12:10 | Outpatient (BNVA) | payer MEDICARE, OTHER, SELFPAY | PROVIDERS: PCP Nurse Practitioner; Visit Provider Nurse Practitioner | DX: E78.2 Mixed hyperlipidemia (principal) | CPT/HCPCS: 80053; 80061 ==

== ENCOUNTER 2023-06-30 10:52 | Outpatient (CLI) | payer MEDICARE, OTHER, SELFPAY ==
--- NOTE | 2023-06-30 11:05 | XRR_ITS ---
PROCEDURE INFORMATION: Exam: XR Chest Exam date and time: 06/30/2023 11:09 AM Age: 73 years old Clinical indication: Cough; Additional info: Bronchitis TECHNIQUE: Imaging protocol: Radiologic exam of the chest. Views: 2 views. COMPARISON: CT chest wo con [id number] 01/10/2021 1:31 PM FINDINGS: Lungs: Hyperinflation and interstitial prominence, without focal infiltrate. Pleural spaces: No pleural effusion. Heart/Mediastinum: Epicardial fat accentuates the cardiac silhouette. Vasculature: Calcification of the thoracic aorta. Bones/joints: Degenerative change. XR/XR chest 2V* [id number] IMPRESSION: Hyperinflation and interstitial prominence, without focal infiltrate.
== END 2023-06-30 10:53 | disposition home or self-care (01) ==
LOC: RAD 10:57
PROVIDERS: PCP Nurse Practitioner; Visit Provider Nurse Practitioner Family
DX: J40 Bronchitis, not specified as acute or chronic (principal)
CPT/HCPCS: 71046

== ENCOUNTER → 2023-07-28 10:13 | Outpatient (BNVA) | payer MEDICARE, OTHER, SELFPAY | PROVIDERS: PCP Nurse Practitioner; Visit Provider Internal Medicine Cardiovascular Disease | DX: I25.10 Atherosclerotic heart disease of native coronary artery without angina pectoris (principal); E78.2 Mixed hyperlipidemia; I10 Essential (primary) hypertension; K21.9 Gastro-esophageal reflux disease without esophagitis | CPT/HCPCS: 99214 ==

== ENCOUNTER → 2024-02-02 11:18 | Outpatient (BNVA) | payer MEDICARE, OTHER, SELFPAY | PROVIDERS: PCP Nurse Practitioner; Visit Provider Internal Medicine Cardiovascular Disease | DX: R07.9 Chest pain, unspecified (principal) | CPT/HCPCS: 93005 ==

== ENCOUNTER → 2024-02-16 09:52 | Outpatient (BNVA) | payer MEDICARE, OTHER, SELFPAY | PROVIDERS: PCP Nurse Practitioner; Visit Provider Nurse Practitioner | DX: J44.9 Chronic obstructive pulmonary disease, unspecified (principal); E78.2 Mixed hyperlipidemia; G31.84 Mild cognitive impairment of uncertain or unknown etiology; I25.118 Atherosclerotic heart disease of native coronary artery with other forms of angina pectoris; K21.9 Gastro-esophageal reflux disease without esophagitis; I10 Essential (primary) hypertension; J30.1 Allergic rhinitis due to pollen | CPT/HCPCS: 80053; 80061 ==

== ENCOUNTER 2024-03-04 13:17 | Outpatient (CLI) | payer MEDICARE, OTHER, SELFPAY ==
--- NOTE | 2024-03-04 13:50 | XRR_ITS ---
PROCEDURE INFORMATION: Exam: XR Chest Exam date and time: 03/04/2024 2:04 PM Age: 73 years old Clinical indication: Cough; Prior surgery; Surgery date: 6+ months; Surgery type: Stent; Additional info: J20.9 acute bronchitis TECHNIQUE: Imaging protocol: Radiologic exam of the chest. Views: 2 views. COMPARISON: CR XR chest 2V* [id number] 06/30/2023 11:09 AM FINDINGS: Lungs: Right lung base consolidation, highly suspicious for pneumonia. Pleural spaces: Unremarkable. No pleural effusion. No pneumothorax. Heart/Mediastinum: Unremarkable. No cardiomegaly. Vasculature: Calcified aortic knob. Bones/joints: Unremarkable. XR/XR chest 2V* [id number] IMPRESSION: Right lung base consolidation, highly suspicious for pneumonia.
== END 2024-03-04 13:18 | disposition home or self-care (01) ==
LOC: RAD 13:19
PROVIDERS: PCP Nurse Practitioner; Visit Provider Nurse Practitioner Family
DX: J20.9 Acute bronchitis, unspecified (principal); R91.8 Other nonspecific abnormal finding of lung field
CPT/HCPCS: 71046

== ENCOUNTER → 2024-08-05 11:15 | Outpatient (BNVA) | payer MEDICARE, OTHER, SELFPAY | PROVIDERS: PCP Nurse Practitioner; Visit Provider Nurse Practitioner | DX: I10 Essential (primary) hypertension (principal) | CPT/HCPCS: 80053; 80061; 85025 ==

== ENCOUNTER 2024-08-16 14:43 | Outpatient (CLI) | payer MEDICARE, OTHER, SELFPAY ==
--- NOTE | 2024-08-16 16:00 | CT_ITS ---
WS: [id number] CT chest wo con [id number] HISTORY: J44.9 - Chronic obstructive pulmonary disease, unspecified TECHNIQUE: Axial imaging performed through the thorax. Coronal and sagittal reformats are submitted. All CT scans at [facility] use at least one of these dose optimization techniques: automated exposure control; mA and/or kV adjustment per patient size (includes targeted exams where dose is matched to clinical indication); or iterative reconstruction. CONTRAST: None DLP: 529.44 mGy.cm COMPARISON: 01/10/2021 Lungs and central airway: Hyperexpanded lungs with chronic emphysematous changes. Solid mass containing calcifications and adjacent groundglass attenuation present in the RIGHT lower lobe partially abutting the pleura. Mass measures 5.3 x 5.3 x 6.5 cm. Mass extends to abut RIGHT lower lobe bronchus with bronchial wall thickening. There are few additional scattered nodules throughout both lungs along with chronic appearing interstitial pulmonary fibrotic changes. Pleura: Normal. No pleural effusion. Heart and pericardium: Normal size heart. Scattered coronary artery calcifications. Mediastinum and nicole: This exam was not performed with contrast. The hilar regions are difficult to evaluate. Suspect there are probably RIGHT hilar lymph nodes. There are small paratracheal lymph nodes. 18 mm lymph node in the RIGHT infrahilar region. Vessels: Mild atherosclerosis. Mild dilated pulmonary artery. Chest wall and lower neck: No soft tissue masses. Upper abdomen: No adrenal mass. Calcification in the suprarenal aorta. Dense calcified plaque at the origin of the SMA and celiac axis. Osseous structures: No destructive process. CT/CT chest wo con [id number] IMPRESSION: 1. Large solid mass RIGHT lower lobe abutting the pleura with adjacent surroun ding groundglass attenuation. Mass measures 5.3 x 5.3 x 6.5 cm and is highly fernandez spicious for neoplasm. Recommend follow-up with PET/CT imaging, pulmonology and for bronchoscopy. 2. Fullness in the RIGHT hilum. This study was ordered without IV contrast the refore pathologically enlarged lymph nodes in the RIGHT hilum cannot be exclude d. 3. Chronic emphysema. There are a few additional scattered very small pulmonar y nodules and interstitial fibrosis. 4. Dense calcification origin of the celiac axis and SMA.
--- NOTE | 2024-08-16 16:00 | CT_ITS ---
WS: [id number] CT ABDOMEN AND PELVIS WITH CONTRAST HISTORY: J44.9 - Chronic obstructive pulmonary disease, unspecified TECHNIQUE: Imaging performed of the abdomen and pelvis with IV contrast. Single phase imaging of the abdomen. Coronal and sagittal reformats are submitted. All CT scans at [facility] use at least one of these dose optimization techniques: automated exposure control; mA and/or kV adjustment per patient size (includes targeted exams where dose is matched to clinical indication); or iterative reconstruction. IV CONTRAST: Omnipaque 300; 95 mL IV. Oral contrast: Yes. DLP: 726.50 mGy.cm COMPARISON: None available. Lower thorax: Chronic emphysematous changes at the lung bases. There is a large dense area of consolidation with spiculated margins in the RIGHT lower lobe. Mass contains few foci of calcification. This mass measures 6.6 x 5.8 cm and is incompletely visualized. Heart is normal size. No hiatal hernia. Liver/biliary system: Normal size with no intrahepatic dilatation. Gallbladder: Normal. No gallstones or wall thickening. No pericholecystic fluid. Pancreas: Normal size pancreas and pancreatic duct. No adjacent inflammation. Spleen: Normal size spleen. No mass or infarct. Adrenal glands: Normal. Right kidney: Normal. Left kidney: Normal size kidney. Cortical cyst mid to lower kidney measures 0.8 cm. Aorta: Dense calcification within the abdominal aorta. No aneurysm. Thin circumferential plaque at the origins of the celiac axis and SMA. Stenosis suspected at both levels due to the burden of plaque. Additional dense calcifications at the origins of the renal arteries. Lymphadenopathy: None. Free fluid: None. GI tract: Stomach is markedly distended with food products. No small bowel obstruction. Mild constipation and fecal retention. Normal appendix. No significant diverticular disease. No colitis. Abdominal wall: Unremarkable abdominal wall. No hernia. Pelvis: Nondistended bladder. Mild prostate enlargement. Patent bilateral inguinal canals containing fat. Bones: Schmorl's nodes defects L3 and L4. Degenerative osteophytic ridging throughout the lumbar spine. CT/CT abdomen pelvis w con* [id number] IMPRESSION: 1. RIGHT lower lobe mass measuring 6.6 x 5.8 cm. Mass is incompletely included on this exam. Please see chest CT report performed on the same day. This is hi ghly suspicious for neoplasm. 2. No renal obstruction. 3. Extensive atherosclerotic plaque within the aorta and mesenteric vessels. 4. Due to the extensive plaque at the origins of the celiac axis, SMA and yusef l arteries these are findings suspicious for significant stenoses. No ischemic changes within the GI tract identified. Both kidneys are enhancing normally at this time. 5. No adenopathy. 6. Patent bilateral inguinal canals containing fat.
[2024-08-16] MEDS: iohexol 350 mg/mL 500 mL Btl (per mL) PO (16:17)
[2024-08-16] MEDS: iohexol 350 mg/mL 500 mL Btl (per mL) IV (16:18)
== END 2024-08-16 14:44 | disposition home or self-care (01) ==
PROVIDERS: PCP Nurse Practitioner; Visit Provider Nurse Practitioner
DX: J94.8 Other specified pleural conditions (principal); R63.4 Abnormal weight loss; J43.9 Emphysema, unspecified; I70.0 Atherosclerosis of aorta; K55.1 Chronic vascular disorders of intestine
CPT/HCPCS: 71250; 74177

== ENCOUNTER → 2024-08-26 10:10 | Outpatient (BNVA) | payer MEDICARE, OTHER, SELFPAY | PROVIDERS: PCP Nurse Practitioner; Visit Provider Nurse Practitioner | DX: R19.7 Diarrhea, unspecified (principal) | CPT/HCPCS: 87177; 87209 ==

== ENCOUNTER 2024-09-03 09:44 | Outpatient (CLI) | payer MEDICARE, OTHER, SELFPAY ==
--- NOTE | 2024-09-03 10:00 | PETR_ITS ---
PROCEDURE INFORMATION: Exam: PET/CT Skull Base to Mid-thigh Exam date and time: 09/03/2024 10:49 AM Age: 74 years old Clinical indication: Abnormal findings; Right lower lobe mass measuring 6.6 x 5.8 cm; Additional info: R93.5 - abnormal findings on diagnostic imaging of other . . . LABS AND CLINICAL REPORTS: Glucose: 116 mg/dl Treatment strategy for malignancy (PET staging): Initial Staging (PI) TECHNIQUE: Imaging protocol: Following at least four-hour fasting and following the injection of radiopharmaceutical, low dose CT images were obtained. Then, PET images were obtained. Attenuation corrected images were constructed using the CT scan. Fused images of PET and CT were reviewed. The standardized uptake values (SUV) reported below are maximum values within a region of interest, expressed in gm/ml. Exam includes orbital meatal line to mid-thigh. SUV normalization method: BodyWeight Radiopharmaceutical: 12.1 mCi F-18 FDG (Fluorodeoxyglucose), IV. Time of imaging post radiopharmaceutical administration: 52 minutes Injection site: right hand COMPARISON: 1. CT abdomen pelvis w con* [id number] 08/16/2024 4:[address] chest wo con [id number] 08/16/2024 4:01 PM FINDINGS: Brain: Visualized brain has normal physiologic uptake. Pharynx: No abnormal uptake. Larynx: No abnormal uptake. Lungs, pleura and trachea: Mild upper lung predominant emphysematous change. FDG avid right lower lobe mass spans approximately 6 x 5 cm and shows SUV max 12.6. Heart: Normal physiologic uptake. Thin curvilinear lateral left ventricle subendocardial fat density suggestive of chronic infarct. Coronary arteries: Moderate coronary artery calcification. Mediastinal space: No abnormal uptake. Liver: No abnormal uptake. Gallbladder and biliary ducts: No abnormal uptake. Pancreas: No abnormal uptake. Spleen: No abnormal uptake. Adrenal glands: No abnormal uptake. Kidneys and ureters: Normal physiologic uptake. Stomach and bowel: No abnormal uptake. Reproductive: Prostatomegaly without abnormal uptake. Vasculature: No abnormal uptake. Heavy systemic atherosclerotic calcification without aortic aneurysm. Lymph nodes: Enlarged FDG avid right hilar node measures 2.2 cm in the short axis on axial image 106 and shows SUV max 12.6. Skeleton: Degenerative change along the spine, shoulders and sacroiliac joints. Soft tissues: No abnormal uptake in the visualized head, neck, chest, abdomen, pelvis, and extremities. Small bilateral fat containing inguinal hernias. METRICS: Mediastinal blood pool: SUV mean 1.9 Liver uptake: SUV mean 2.6 PET/PET skull to thigh INIT [id number] IMPRESSION: 1. FDG avid right lower lobe mass highly suspicious for malignancy. 2. FDG avid right hilar lymphadenopathy likely representing metastatic disease. 3. Additional chronic and incidental findings as above.
== END 2024-09-03 09:45 | disposition home or self-care (01) ==
LOC: RAD 09:45
PROVIDERS: PCP Nurse Practitioner; Visit Provider Nurse Practitioner
DX: R93.5 Abnormal findings on diagnostic imaging of other abdominal regions, including retroperitoneum (principal); R91.8 Other nonspecific abnormal finding of lung field; R59.0 Localized enlarged lymph nodes
CPT/HCPCS: 78815; A9552

== ENCOUNTER → 2024-09-15 10:29 | Outpatient (BNVA) | payer MEDICARE, OTHER, SELFPAY | PROVIDERS: PCP Nurse Practitioner; Referring Provider Internal Medicine Medical Oncology; Visit Provider Surgery | DX: Z95.828 Presence of other vascular implants and grafts (principal) | CPT/HCPCS: 99204 ==

== ENCOUNTER 2024-09-21 13:00 | Oncology outpatient (recurring) (ONCR) | payer MEDICARE, OTHER, SELFPAY ==
[2024-09-21 13:22] VITALS: PULSE 82; RESP 18; O2SAT 98
== END 2024-09-23 23:59 | disposition home or self-care (01) ==
LOC: RT 13:00 → ONCMED 09-22 10:17
PROVIDERS: PCP Nurse Practitioner; Visit Provider Internal Medicine Medical Oncology
DX: Z53.9 Procedure and treatment not carried out, unspecified reason (principal); C34.2 Malignant neoplasm of middle lobe, bronchus or lung; R94.2 Abnormal results of pulmonary function studies
CPT/HCPCS: 94060; 94726; 94729; 99205; J7613

== ENCOUNTER 2024-09-22 05:39 | Day surgery (SDC) | payer MEDICARE, OTHER, SELFPAY ==
[2024-09-22] VITALS (7 sets, daily range): BP systolic 103–121; BP diastolic 43–54; PULSE 66–80; RESP 16–20; TEMP 36.1–36.4; O2SAT 94–96; BMI 29.4
--- NOTE | 2024-09-22 06:09 | ANES.PREANE2 ---
Pre-Anesthetic Assessment Height/Weight: Height 5 ft 11 in Preop Diagnosis: Non-small cell carcinoma Operation Date: 09/22/24 07:00 Proposed Procedures p Insertion Central Venous Access Device Port a Cath Insertion [id number], C34.2, Z95.828(Not Applicable) - Tristian Hatch MD Social No alcohol and No tobacco Quit smoking 20 years ago Exam alert, oriented x 3 and regular rate & rhythm Airway Submandibular: within normal limits Cervical ROM: within normal limits Mallampati: Class III Comments: Comments: Edentulous Anesthetic Plan ASA status: 4 Anesthesia: MAC Other: No prior issues with anesthesia N.p.o. since yesterday evening Patient has non-small cell carcinoma. Large mass in right lower lobe measuring 5.3 x 6.5 cm. CAD history, s/p PCI. On chronic Plavix. Last taken 09/17/2024 History of hypertension on olmesartan and metoprolol GERD, controlled with Pepcid EMMANUELLE on CPAP Labs reviewed from 08/05/2024 acceptable for procedure EKG showing sinus bradycardia with first-degree AV block Plan for MAC anesthesia Medications/Allergies Home Medications ?Medication ?Instructions ?Recorded ?Confirmed ?Last Taken ?Type ketoconazole 2 % topical cream 1 applic topical .at bedtime #60 04/19/22 09/21/24 09/21/24 21:00 Rx grams CPAP machine and supplies #1 ea 04/22/22 09/15/24 09/21/24 21:00 Rx dupilumab 300 mg/2 mL subcutaneous 300 mg SUBCUT .BIWEEKLY 09/02/22 09/21/24 09/21/24 21:00 History pen injector (Dupixent) clopidogrel 75 mg tablet (Plavix) 75 mg PO DAILY #90 tabs 04/06/24 09/21/24 09/21/24 21:00 Rx albuterol sulfate 90 mcg/actuation 2 puff inhalation Q6H PRN 08/05/24 09/21/24 09/21/24 07:00 Rx aerosol inhaler shortness of breath or wheezing #34 grams atorvastatin 20 mg tablet 20 mg PO DAILY #90 tabs 08/05/24 09/21/24 09/21/24 21:00 Rx donepezil 10 mg tablet (Aricept) 10 mg PO DAILY #90 tabs 06/02/1709/21/24 09/21/24 21:00 Rx evolocumab 140 mg/mL subcutaneous 140 mg SUBCUT .every 14 days #6 mL 08/05/24 09/21/24 09/21/24 21:00 Rx pen injector (Luan Modi) metoprolol succinate 50 mg 50 mg PO DAILY #90 tabs 08/05/24 09/21/24 09/21/24 21:00 Rx tablet,extended release 24 hr montelukast 10 mg tablet 10 mg PO DAILY #90 tabs 08/05/24 09/21/24 09/21/24 21:00 Rx (Singulair) olmesartan 20 mg tablet (Benicar) 20 mg PO DAILY #90 tabs 08/05/24 09/21/24 09/21/24 21:00 Rx tizanidine 4 mg tablet (Zanaflex) 4 mg PO BEDTIME PRN muscle 08/05/24 09/21/24 09/21/24 21:00 Rx spasticity #90 tabs venlafaxine 37.5 mg 37.5 mg PO DAILY #90 caps 08/05/24 09/21/24 09/21/24 21:00 Rx capsule,extended release 24 hr (Effexor XR) famotidine 40 mg tablet (Pepcid) 40 mg PO DAILY 09/21/24 09/21/24 09/21/24 21:00 History Allergies Allergy/AdvReac Type Severity Reaction Status Date / Time ibuprofen Allergy Unknown Unknown Verified 09/22/24 06:10 [facility] Anesthesia Medical History EMMANUELLE on CPAP Erectile dysfunction Elevated PSA Allergic rhinitis due to pollen Mild cognitive impairment, so stated Gastro-esophageal reflux disease without esophagitis COPD (chronic obstructive pulmonary disease) Essential (primary) hypertension Mixed hyperlipidemia Surgical History History of PTCA 10/11/21 [facility] Hx of cataract extraction History of heart artery stent Family History Mother Lung disease TB Cancer Father CAD (coronary artery disease) at 72 w/[place] Denies family history of Diabetes Clotting disorder Dementia Chronic kidney disease (CKD) Suicide Anesthesia complication Bleeding disorder Stroke Social History Smoking and tobacco/nicotine status: never used tobacco/nicotine Second hand smoke exposure: No Alcohol intake: current Alcohol intake frequency: holidays/special occasions only Substance/Drug Use: never Adopted: No Caregiver/support person: No Lives independently: Yes Household members: spouse Housing: House Marital status: Current occupational status: retired Do you think of yourself as: Straight/Heterosexual Current gender identity: Male Data Anesthesia Cardiac Studies: Echocardiogram 07/11/21 Sestamibi Stress Test (Cardiology) 10/04/21
--- NOTE | 2024-09-22 06:42 | W.PM.OPSUD ---
Surgery/Procedure H&P Update DATE OF PROCEDURE: September 22, 2024 DATE H&P PERFORMED: 09/15/24 H&P UPDATE INFORMATION: I have reviewed H&P completed within last 30 days, I have examined patient prior to procedure, No changes to prior documentation, H&P is in [facility] EMR on date indicated and Risks and benefits of the procedure reviewed PREOP DIAGNOSIS: Non-small cell carcinoma PLANNED PROCEDURE: Operation Date: 09/22/24 07:00 Proposed Procedures p Insertion Central Venous Access Device Port a Cath Insertion [id number], C34.2, Z95.828(Not Applicable) - Tristian Hatch MD
[2024-09-22] MEDS: ceFAZolin 2,000 mg SDV 2000 MG IVP (07:00)
[2024-09-22] MEDS: lidocaine-epi 1% 20 mL INJ 10 ML INJECTION (07:10)
[2024-09-22] MEDS: heparin, porcine 1,000 unit/mL INJ 10 mL 6000 UNIT IRRIGATION (07:15)
[2024-09-22] MEDS: BUPivacaine 0.25% INJ 10 mL INJECTION (07:15)
--- NOTE | 2024-09-22 07:50 | PM.OP ---
Operative Report Date of procedure: September 22, 2024 Pre-op diagnosis: Lung cancer Post-op diagnosis: Same Post-op findings: Normal vascular anatomy in the right neck Procedure done: Insertion of right IJ Port-A-Cath Implants: Bard Port-A-Cath Surgeon: Tristian Hatch MD Portfolio Management Marketing: [facility] OR Staff Estimated blood loss: 5 Complications: none Brief History: 74-year-old male with history of lung cancer who presented for port placement. After discussion we will resume benefits with side to proceed. Procedure: Patient was brought into the OR, he was placed in a supine position, monitored anesthesia sedation was given. Timeout was conducted after the skin was prepped and draped in the usual sterile fashion. I then proceeded to identify the right IJ vein with ultrasound, I infiltrated local anesthesia on top of the vein. I then proceeded to cannulate the vein under direct ultrasound guidance using an 18-gauge needle, the needle tip was seen entering the vein and immediate return of blood was noted. A wire was advanced through the needle and the needle was removed. The position of the wire was verified with ultrasound and fluoroscopy. The wire was then fixed to the drapes. I then placed my attention to the chest, local anesthesia was infiltrated in the previously marked area on the chest and then a tract connecting the chest to the wire insertion site in the neck. I then proceeded to make a 3.5 cm incision in the right upper chest, the incision was deepened to subcutaneous tissue with electrocautery and electrocautery was used to create the subcutaneous pocket to house the Port-A-Cath. I then proceeded to use a hemostat to create a tunnel from the chest wound to the neck. I then proceeded to make a 0.5 cm incision at the level of the wire insertion site in the neck. Hemostasis was verified. I then placed the Port-A-Cath in the pocket and tunneled the catheter using the provided tunneler. The catheter was cut to appropriate length under fluoroscopy guidance and then flushed. I then proceeded to insert an introducer with a peel-off sheath over the wire under direct fluoroscopic guidance. I then remove the wire and the introducer leaving the peel-off sheath in place. The catheter was then advanced through the peel-off sheath and the peel-off sheath was removed leaving the catheter in place. Fluoroscopy showed evidence of Adequate catheter position. I then proceeded to access the port; the port was retrieving blood and flushing fine, I then hep-locked the catheter. Hemostasis was verified. The wound was closed in layers using #3-0 Vicryl for the subcutaneous tissue and #4 Monocryl for the skin. Dermabond was applied. At the end of the procedure all counts were correct. The patient tolerated well the procedure and was transferred to the PACU in stable condition.
--- NOTE | 2024-09-22 08:58 | ANE.PACU2 ---
Inpatient post-anesthesia follow up: Airway intact: Yes Vital signs: Temperature 97.1 F Pulse Rate 66 Respiratory Rate 18 Blood Pressure 121/54 Pulse Oximetry 95 Oxygen Delivery Me thod Room Air Oxygen Flow Rate 8 Fraction of Inspir ed Oxygen Hydration adequate: Yes Nausea and vomiting: No Pain level: 2 Mental status: Baseline
== END 2024-09-22 09:00 | disposition home or self-care (01) ==
PROVIDERS: PCP Nurse Practitioner; Visit Provider Surgery
PROC: (CPT 36561; principal; 2024-09-22 07:00)
DX: C34.90 Malignant neoplasm of unspecified part of unspecified bronchus or lung (principal); I25.10 Atherosclerotic heart disease of native coronary artery without angina pectoris; I10 Essential (primary) hypertension; K21.9 Gastro-esophageal reflux disease without esophagitis; G47.33 Obstructive sleep apnea (adult) (pediatric); E78.2 Mixed hyperlipidemia; J44.9 Chronic obstructive pulmonary disease, unspecified
CPT/HCPCS: 36561; 76000; C1788; J0690; J1644; J2704; J3010; J3490; J7030; J9999

== ENCOUNTER → 2024-10-19 09:04 | Outpatient (BNVA) | payer MEDICARE, OTHER, SELFPAY | PROVIDERS: PCP Nurse Practitioner; Visit Provider Surgery | DX: C34.2 Malignant neoplasm of middle lobe, bronchus or lung (principal) | CPT/HCPCS: 99213 ==

== ENCOUNTER 2024-10-19 10:15 | Oncology outpatient (recurring) (ONCR) | payer MEDICARE, OTHER, SELFPAY ==
--- NOTE | 2024-09-27 16:19 | N.ONRAD NP_ITS ---
Radiation Oncology New Patient Visit Patient: Raul Patiño MR#: [id number] : 1950 Age: 74 Sex: Male Dictated by: Dr. Akshat Carrillo Date of Service: 09/27/2024 Referring Physician(s) : Dr. 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 He is now scheduled to see thoracic surgeon at [facility] in [place] tomorrow on 09/28/2024. Radiotherapy to date: Summary > No prior radiation therapy. Chief Complaint / History of Present Illness: 74 yo former smoker ( 2ppd age 16 to 49). New unproductive cough, fatigue , shortness of breath and [address] chest 08/16/2024 6.5 cm RLL mass with possible right hilar and right para tracheal adenopathy. Navigational bronch with bx of RLL, hilar adenopathy and subcarinal LN. Lung and hilum revealed squamous cell carcinoma. Subcarinal bx negative. PFTs done with results not available. PET/CT 09/03/2024 Metabolic mass in right lower lobe and right hilar regions. No mediastinal adenopathy or metastatic disease seen on my review. Port placement 09/22/2024 in right chest. Surgical evaluation now scheduled at [facility] 09/28/2024. Current Medications: albuterol sulfate 90 mcg/actuation 2 puffs inhalation Q6H PRN atorvastatin 20 mg PO DAILY clopidogrel (Plavix) 75 mg PO DAILY [CPAP machine and supplies As directed auto titrating cpap 5-20cm with supplies 99 month donepezil (Aricept) 10 mg PO DAILY dupilumab (Dupixent) mg SUBCUT evolocumab (Repatha SureClick) 140 mg SUBCUT .every 14 days famotidine (Pepcid) 40 mg PO BID ketoconazole 2% 1 applic topical .at bedtime loperamide (Imodium A-D) 2 mg PO Q6H PRN metoprolol succinate ER 50 mg PO DAILY montelukast (Singulair) 10 mg PO DAILY olmesartan (Benicar) 20 mg PO DAILY tizanidine (Zanaflex) 4 mg PO BEDTIME PRN venlafaxine ER (Effexor XR) 37.5 mg PO DAILY Allergies: ibuprofen Allergy Medical History: No history of collagen vascular disease. No previous radiation therapy. EMMANUELLE on CPAP Erectile dysfunction Elevated PSA Allergic rhinitis due to pollen Mild cognitive impairment, so stated Gastro-esophageal reflux disease without esophagitis COPD (chronic obstructive pulmonary disease) Essential (primary) hypertension Mixed hyperlipidemia Surgical History: History of PTCA 10/11/21 [facility] Hx of cataract extraction History of heart artery stent Family History: Mother Lung disease TB Cancer Father CAD (coronary artery disease) at 72 w/[place] Denies family history of Diabetes Social History: Smoking and tobacco/nicotine status: never used tobacco/nicotine Second hand smoke exposure: No Alcohol intake: current Alcohol intake frequency: holidays/special occasions only Substance/Drug Use: never Adopted: No Caregiver/support person: No Lives independently: Yes Household members: spouse Housing: House Marital status: second time x 49 years. 3 chldren, 1 step son from [place] at 56. now nearly blind x 3 years due to macular degeneration and glaucoma. 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 No significant hobbies. Do you think of yourself as: Straight/Heterosexual Current gender identity: Male Current Complaints / Review of Systems: . Vital Signs: Performed on 09/27/2024 1:57 PM BMI - 29.568 kg/m2 (high), Height - 71 in, Weight - 212 lbs, Temperature - 96.5 f, Pulse - 92 /min, Respiration - 17 /min, O2 Sat - 96 %, Pain - 0, Fatigue - 0 and BP - 143/ 71 mm(hg)(high/). Physical Exam: Robust appearing in NAD. No palpable adenopathy. New port in upper right chest. Lungs clear. Heart regular. No clubbing or pedal edema. Performance Status: ECOG PS 0 ??? 1. Pathology: see above Lab: no labs seen . Imaging: See HPI Impression: St IIIA(T3, N1, M0) squamous cell carcinoma of the RLL> PFT results not yet available. IF he is a surgical candidate, this should be his first consideration. Corey adjuvant chemotherapy should be considered preoperatively. If he is not a surgical candidate, then he would be treated with concurrent chemo and radiation. He is very interested in pursuing surgery. Plan: Surgical evaluation as scheduled. Return here if he is not a candidate for resection. Signed by: 09/27/2024 4:17:24 PM <<Signature on File>> Time spent with patient: 60 min. CPT Code: CPT Code:
== END 2024-10-24 23:59 | disposition home or self-care (01) ==
PROVIDERS: PCP Nurse Practitioner; Visit Provider Radiology Radiation Oncology
DX: Z53.9 Procedure and treatment not carried out, unspecified reason; Z45.2 Encounter for adjustment and management of vascular access device; Z95.828 Presence of other vascular implants and grafts; C34.2 Malignant neoplasm of middle lobe, bronchus or lung
CPT/HCPCS: 96523; 99205; 99213; 99214

== ENCOUNTER → 2024-11-02 08:39 | Outpatient (BNVA) | payer MEDICARE, OTHER, SELFPAY | PROVIDERS: PCP Nurse Practitioner; Visit Provider Thoracic Surgery (Cardiothoracic Vascular Surgery) | DX: I96 Gangrene, not elsewhere classified (principal); L89.323 Pressure ulcer of left buttock, stage 3 | CPT/HCPCS: 97597; 97598; 99203 ==

== ENCOUNTER 2024-11-07 09:16 | Emergency (ER) | payer MEDICARE, OTHER, SELFPAY ==
--- OUTSIDE RECORDS SUMMARY | 2024-02-05 09:20 | XMS_ITS ---
Author Organization [facility] Address [address] [place] [address] Care Team Providers Care Director Of Consumer Affairs Name Role Phone Selvin Stone Primary Care Provider SELVIN STONE Unavailable Unavailable REASON FOR VISIT Annual Wellness Visit Encounters Encounter Location Date Provider Diagnosis [facility] Office [address] [address] 02/05/2024 Selvin Stone Plan Of Treatment No Information Progress Notes * ANGEL PATIÑO RDOB: [birth year] (74 yo M)Acc No.[id number]:02/05/2024 Progress Note Patient: Jacob CORTESANGEL Provider: Santhosh Stone CONTRACTS ADVISOR :1950 A ge:73 Y S ex:Male Date:02/05/2024 Address:[address] [id number] Subjective: * Chief Complaints: * A nnual Wellness Visit * Ocular Surgical History: Objective: Vision Examination: Care Plan Details* * Electronic signature of Mariel Stone APN on 11/07/2024 at 09:22 AM CDT Sign off status: Pending * Provider: Santhosh Stone CONTRACTS ADVISOR Date: 1 04/07/2023 Generated for Alana mcgill/Jovanny/Silviaitting on: 0 11/07/2024 09:22 AM CDT
[2024-11-07] VITALS (13 sets, daily range): BP systolic 79–131; BP diastolic 29–67; PULSE 77–84; RESP 14–20; TEMP 36.6; O2SAT 90–99; BMI 28.7
--- OUTSIDE RECORDS SUMMARY | 2024-11-07 09:23 | XMS_ITS | Patient Health Record ---
Author Organization [facility] Address [address] [place] [address] Care Team Providers Care Sealing Machine Operator Name Role Phone Stone Selvin Primary Care Provider [phone] SELVIN STONE Unavailable Unavailable Feliz Ina Unavailable [phone] Allergies Allergen (clinical drug ingredient) Drug/Non Drug Allergy documented on EMR Reaction Allergy Type Onset Date Status ibuprofen Ibuprofen Unknown Drug Allergy Active Results Component Value Reference Range Notes Strep [place] A 98[address] Reviewed date:03/04/2024 03:24:09 PM Interpretation: Performing Lab: Notes/Report: Strep Screen A positive Influenza A/B PCR-- 40863 Reviewed date:03/04/2024 03:24:37 PM Interpretation: Performing Lab: Notes/Report: Influenza B PCR negative Influenza A PCR negative Chest AP/Lateral Reviewed date:04/07/2024 03:10:22 PM Interpretation: Performing Lab: Notes/Report: Reason For Referral No Information Medications Medication SIG (Take, Route, Frequency, Duration) Notes Start Date End Date Status rosa Looneyick 140 MG/ML Solution Auto-injector Subcutaneous; Duration: 84 Days Active Atorvastatin Calcium 20 MG Tablet 1 tablet Orally Once a day Active Cyclobenzaprine HCl 10 MG Tablet 1 tablet as needed Orally Twice a day 07/28/2023 Not-Taking Pepcid 40 MG Tablet 1 tablet at bedtime Orally Once a day Active Metoprolol Succinate ER 50 MG Tablet Extended Release 24 Hour 1 tablet Orally Once a day Active Paxlovid (300/100) 20 x 150 MG & 10 x 100MG Tablet Therapy Pack TAKE 3 TABLETS TOGETHER (TWO 150 MG NIRMATRELVIR TABLETS AND ONE 100 MG RITONAVIR TABLET) BY MOUTH TWICE DAILY FOR 5 DAYS. Oral; Duration: 5 Days Not-Taking Albuterol Sulfate HFA 108 (90 Base) MCG/ACT Aerosol Solution Inhalation; Duration: 90 Days Active Vitamin C 500 MG Capsule as directed Orally Active Azithromycin 250 MG Tablet Z pack as dir ected Orally 01/27/2024 Not-Taking Aricept 5 MG Tablet 1 tablet at bedtime Orally Once a day Active Clopidogrel Bisulfate 75 MG Tablet Oral; Duration: 90 Days Active Aspirin 81 81 MG Tablet Delayed Release 1 tablet Orally Once a day Not-Taking Benicar 20 MG Tablet 1 tablet Orally Onc e a day Active Montelukast Sodium 10 MG Tablet 1 tablet Orally Once a day Active Vitamin D3 1.25 MG (41297 UT) Capsule 1 capsule Orally Not-Taking LORazepam 1 MG Tablet 1/2 to 1 tab Orall y Once a day in evening prn sleep/anxiety; Duration: 30 days 05/31/2024 Active Loperamide HCl 2 MG Capsule TAKE 1 CAPSULE BY MOUTH EVERY 6 HOURS NEEDED FOR LOOSE STOOLS Oral; Duration: 2 Days Active Magnesium 400 MG Capsule as directed Orally Active Dupixent 300 MG/2ML Solution Prefilled Syringe as directed Subcutaneous q 2 weeks Active Venlafaxine HCl ER 37.5 MG Capsule Extended Release 24 Hour 1 capsule with food Oral Once a day; Duration: 90 days Active tiZANidine HCl 4 MG Tablet 1 tablet at b edtime as needed Oral Once a day; Duration: 90 days Active Immunizations Vaccine Route Administration Date Status Comme nts Flucelvax Trivalent, Syringe 0.5 mL, PF Unknown 024 Refused Social History Tobacco Use: Social History Observation Description Date Details (start date - stop date) Never Smoker NA - NA Social History Depression Screening Social Info Question Answer Notes depression screening findings Findings Negative (0 -4) PHQ-9 Little interest or p brenton in doing things Not at all Feeling down, depressed, or hopeless Not at all Trouble falling or staying asleep, or sleeping t oo much Not at all Feeling tired or having little energy Not at all Poor appetite or overeating Not at all Feeling bad about yourself, or that you are a failure, or have let yourself or your family down Not at all Trouble concentrating on thi ngs, such as reading the newspaper or watching television Not at all Moving or speaking so slowly that other people could have noticed. Or the opposite ? being so fidgety or restless that you have been moving around a lot more than usual Not at all Thoughts that you would be b shruthi off , or of hurting yourself in some way Not at all Total Score 0 Comprehensive Health Assessm ent Social Info Question Answer Notes *Social Determinants of Health Has lack of transportation kept you from medical appointments, meetings, work or from getting things needed for daily living? No Recently, have you worried t hat your food would run out before you got money to buy more? No Do you feel physically and emotionally safe wher e you currently live? Yes Are you worried about losing your housing? No Drug/Alcohol: Social Info Question Answer Notes AUDIT-C (Standard) Did you have a drink containing alcohol in the past year? No Points 0 Interpretation Negative Tobacco Use: Social Info Question Answer Notes Tobacco Control (Standard) Tobacco use: Nonsmoker Section Notes: 09/18/21 Depression screen completed 12/06/2022 score 0 Depression screen completed 12/06/2022 score 0 Depression screen completed 12/06/2022 score 0 Depression screen completed 12/06/2022 score 0 Depression screen completed 12/06/2022 score 0 Depression screen completed 12/06/2022 score 0 01/27/24 PHQ9 Depression screen completed 03/01/2024 score 0 Depression screen completed 03/01/2024 score 0 Depression screen completed 03/01/2024 score 0 Depression screen completed 03/01/2024 score 0 Depression screen completed 12/06/2022 score 0 09/18/21 02-13-22 PHQ9 Problems Problem Type SNOMED Code ICD Code Onset Dates Problem Status W/U Status Risk Notes Problem Bronchitis (72928201) Bronchitis (J40) Active confirmed Problem Insomnia (509268651) Insomnia (G47.00) Active confirmed Problem Febrile illness (320139291) Febrile illness (R50.9) Active confirmed Problem Benign prostatic hyperplasia (328438447) BPH (benign prostatic hyperplasia) (N40.0) Active confirmed Problem Primary hypertension (68616952) Primary hypertension (I10) Active confirmed Problem Acute cough (749397395446135 104) Acute cough (R05.1) Active confirmed Problem Cough (10829465) Cough (R05.9) Active confirmed Vital Signs Heart Rate 67 /min 08/30/2024 Temperature 97.2 degrees Fahrenheit 08/30/2024 Respiratory Rate 20 /min 08/30/2024 Height-cm 177.8 cm 08/30/2024 Oximetry 96 % 08/30/2024 Blood pressure diastolic 57 mm Hg 08/30/2024 Weight-kg 97.52 kg 08/30/2024 Height 70 in 08/30/2024 Blood pressure systolic 126 mm Hg 08/30/2024 Weight 215 lbs 08/30/2024 BMI 30.85 kg/m2 08/30/2024 Encounters Encounter Location Date Provider Diagnosis [facility] [address] [place] [address] 01/27/2024 Inarafi Hernandezton Depression screen Z13.31 ; Acute bronchitis J20.9 ; Encounter for immunization Z23 and Immunization not carried out because of patient refusal Z28.21 [facility] [address] [place] [address] 03/01/2024 Selvin Stone Encounter for Medicare annual wellness exam Z00.00 ; Insomnia G47.00 and Primary hypertension I10 [facility] [address] [place] [address] 03/04/2024 Inarafi Piper Fever R50.9 ; Strep pharyngitis J02.0 and Acute bronchitis J20.9 [facility] [address] [place] [address] 05/31/2024 Selvin Stone Bronchitis J40 ; Cough R05.9 and Insomnia G47.00 [facility] [address] [place] [address] 08/30/2024 Selvin Stone Lung mass R91.8 Assessments Encounter Date Diagnosis (ICD Code) Assessment Notes Treatment Notes Treatment Clinical Notes Section Notes 01/27/2024 Depression screen (ICD-10 - Z13.31) 01/27/2024 Acute bronchitis (ICD-10 - J20.9) Steroid injection given. Increase fluids, take medication as directed. RTC if no improvement with treatment. 03/01/2024 Encounter for Medicare annual wellness exam (ICD-10 - Z00.00) Return in one year for your annual wellness visit. see augie 03/01/2024 Insomnia (ICD-10 - G47.00) ativan 03/04/2024 Fever (ICD-10 - R50.9) 03/04/2024 Strep pharyngitis (ICD-10 - J02.0) Increase fluids, take medication as directed. RTC if no improvement with treatment. 05/31/2024 Bronchitis (ICD-10 - J40) z greer medrol dose pack 05/31/2024 Cough (ICD-10 - R05.9) 08/30/2024 Lung mass (ICD-10 - R91.8) pulmonology as planned 05/31/2024 Insomnia (ICD-10 - G47.00) lorazepam 03/04/2024 Acute bronchitis (ICD-10 - J20.9) Steroid injection given. 03/01/2024 Primary hypertension (ICD-10 - I10) benicar metoprolol 01/27/2024 Encounter for immunization (ICD-10 - Z23) 01/27/2024 Immunization not carried out because of patient refusal (ICD-10 - Z28.21) 03/01/2024 Other Questions asked and answered; discharged to home. 05/31/2024 Other Questions asked and answered; discharged to home. 08/30/2024 Other Questions asked and answered; discharged to home. Plan Of Treatment No Information Insurance Providers Payer Name Payer Address Payer Phone Subscriber Number Group Number Insured Name Patient Relationship to Insured Coverage Start Date Coverage End Date RR Medicare [address] [address] [place] [address] [id number] ANGEL PATIÑO Self - patient is the insured [facility] [employer] [address] [address] [place] [address] [id number] ANGEL PATIÑO Self - patient is the insured Medications Administered Medication Instructions Date of Administration Dosage Notes DEPO-Medrol 12/06/2022 40 mg ndc 21321-170 3-01 pt tolerated well/instructed to wait 20 min DEPO-Medrol 05/08/2023 40 mg ndc 01232-875 3-01 pt tolerated well/instructed to wait 20 min DEPO-Medrol 06/30/2023 40 mg ndc 86260-054 3-01 pt tolerated well/instructed to wait 20 min DEPO-Medrol 01/27/2024 40 mg [id number] 3-01 Patient tolerated well. DEPO-Medrol 03/04/2024 40 mg [id number] 7-31 Patient tolerated well. dexAMETHasone 12/06/2022 4 mg [facility] 74418-9 423-00 pt tolerated well/instructed to wait 20 min dexAMETHasone 05/08/2023 4 mg ndc 82787-1 423-00 pt tolerated well/instructed to wait 20 min dexAMETHasone 06/30/2023 4 mg ndc 65120-5 423-00 pt tolerated well/instructed to wait 20 min dexAMETHasone 01/27/2024 4 mg [id number] 3-00 Patient tolerated well. dexAMETHasone 03/04/2024 4 mg [facility]-66146-2 423-00 Patient tolerated well. Rocephin 03/13/2023 1 g [id number] -21 Patient tolerated well. Medical (General) History Medical History History ICD Code hypertension hyperlipidemia Surgical History Surgery Date(Month/Year) Angiogram 2022 Hospitalization History Reason Date(Month/Year) [facility] 2022
--- OUTSIDE RECORDS SUMMARY | 2024-11-07 09:23 | XMS_ITS | Clinical Summary ---
Author Organization [facility] ([facility]3] [place] Address [address] [place] [address] Phone Care Team Providers Care Rn Flight Name Role Phone Lata Solis CREATIVE/ART DIRECTOR Primary Care Provider Allergies No known active allergies Medications omeprazole (PRILOSEC) 20 mg Capsule, Delayed Release(E.C.) 08/19/2014 Activ e metoprolol succinate (TOPROL XL) 50 mg Extended Release 24 hour tablet 08/19/2014 Active atorvastatin (LIPITOR) 20 mg tablet 08/19/2014 Active benazepril (LOTENSIN) 10 mg tablet Take 10 mg by mouth daily. Active Active Problems No known active problems Social History Tobacco Use Types Packs/Day Years Used Date Smoking Tobacco: Former Smokeless Tobacco: Former Alcohol Use Standard Drinks/Week Comments Not Asked 0 (1 standard drink = 0.6 oz pur e alcohol) Sex and Gender Information Value Date Recorded Sex Assigned at Not on file Legal Sex Male 11:45 AM CDT Gender Identity Not on file Sexual Orientation Not on file Last Filed Vital Signs Vital Sign Reading Time Taken Comments Blood Pressure 105/56 09/13/2014 12:32 PM CDT Pulse 61 09/13/2014 12:32 PM CDT Temperature - - Respiratory Rate - - Oxygen Saturation - - Inhaled Oxygen Concentration - - Weight 102.1 kg (225 lb) 09/13/2014 12:32 PM CDT Height 180.3 cm (5' 11 ) 09/13/2014 12:32 PM CDT Body Mass Index 31.38 09/13/2014 12:32 PM CDT Plan of Treatment Health Maintenance Due Date Last Done Comments DTAP/TDAP/TD VACCINES (1 - Tdap) 1967 PNEUMOCOCCAL VACCINE 50+ YEARS (1 of 1 - PCV) 03/31/18 99 ZOSTER VACCINE (1 of 2) 1998 RSV VACCINE (60+ or ) (1 - 1-dose 75+ series) 2023 INFLUENZA VACCINE (#1) 2024 Insurance [address] [address] [place] [address] Care Teams Rn Flight Relationship Specialty Start Date End Date Lata Solis NP PCP - General NURSE PRACTITIONER 09/13/14
--- OUTSIDE RECORDS SUMMARY | 2024-11-07 09:23 | XMS_ITS | Clinical Summary ---
Author Organization [facility] Address [address] [facility] Attn: Epic Prelude ADT CHANDA FITCH [address] Care Team Providers Care Newspaper Inserter Name Role Phone Lata Solis PUMPER GAGER APPRENTICE Primary Care Provider Allergies No known active allergies Medications omeprazole (PriLOSEC) 20 mg Capsule, Delayed Release(E.C.) 08/19/2014 Activ e atorvastatin (LIPITOR) 20 mg tablet 08/19/2014 Active metoprolol succinate (TOPROL XL) 50 mg Extended Release 24 hour tablet 08/19/2014 Active benazepriL (LOTENSIN) 10 mg tablet Take 10 mg by mouth daily. 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
--- NOTE | 2024-11-07 09:34 | ECG_ITS ---
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 Measurements Intervals [place] Rate: 77 P: 46 MN: 191 QRS: 44 QRSD: 84 T: 73 QT: 309 QTc: 350 Interpretive Statements SINUS RHYTHM NONSPECIFIC T-WAVE ABNORMALITY Compared to ECG 02/02/2024 11:32:18 T-wave abnormality now present Sinus bradycardia no longer present First degree AV block no longer present Electronically Signed On 11-07-2024 20:16:31 CDT by Lenny Izaguirre M.D. [email or web address]
--- NOTE | 2024-11-07 09:34 | XRR_ITS ---
PROCEDURE INFORMATION: Exam: XR Chest Exam date and time: 11/07/2024 10:27 AM Age: 74 years old Clinical indication: Other: Weakness; Prior surgery; Surgery date: 1-6 months; Surgery type: RT upper/mid lobectomy; Additional info: Syncope; Weakness; Recent RT upper/mid lobectomy for lung ca-pt has not started chemo yet TECHNIQUE: Imaging protocol: Radiologic exam of the chest. Views: 1 view. COMPARISON: CR XR chest 2V* [id number] 06/30/2023 11:09 AM FINDINGS: Tubes, catheters and devices: There is a new injection port on the right, the catheter tip extending to the inferior aspect of the superior vena cava at the level of the azygos vein. Lungs: There is no visible pulmonary mass or pneumonia. Pleural spaces: A new right pleural effusion has developed. A new, right apical pneumothorax is present, measuring 25 mm in craniocaudal dimension. Heart/Mediastinum: There is stable cardiomegaly. Bones/joints: Unremarkable. XR/XR chest 1V portable [id number] IMPRESSION: 1. Interval placement of a right internal jugular injection port. 2. New right-sided hydropneumothorax.
--- NOTE | 2024-11-07 09:35 | CTR_ITS ---
PROCEDURE INFORMATION: Exam: CT Head Without Contrast Exam date and time: 11/07/2024 10:12 AM Age: 74 years old Clinical indication: Injury or trauma; Fall; Blunt trauma (contusions or hematomas); Consciousness not specified; Syncope and collapse; Additional info: Syncope, falls TECHNIQUE: Imaging protocol: Computed tomography of the head without contrast. Radiation optimization: All CT scans at this facility use at least one of these dose optimization techniques: automated exposure control; mA and/or kV adjustment per patient size (includes targeted exams where dose is matched to clinical indication); or iterative reconstruction. COMPARISON: PT PET skull to thigh INIT [id number] 09/03/2024 10:49 AM RADIATION DOSE METRICS: Total DLP (mGy-cm): 1181.68 FINDINGS: Brain: Mild global brain atrophy and chronic white matter ischemic changes are present. There is no evidence of intracranial hemorrhage, mass lesion, or ischemic change. No abnormal calcifications are present. Intracranial vessels show minimal atherosclerotic calcifications in the intracranial internal carotid arteries. No aneurysms are suspected. Cerebral ventricles: No ventriculomegaly. Paranasal sinuses: Visualized sinuses are unremarkable. No fluid levels. Mastoid air cells: Visualized mastoid air cells are well aerated. Orbital cavities: Prior cataract surgery is apparent. The globes are otherwise unremarkable. Bones: Unremarkable. No acute fracture. Soft tissues: Unremarkable. CT/CT head wo con* [id number] IMPRESSION: No evidence of acute intracranial pathology. No hemorrhage or other sequela of trauma.
--- NOTE | 2024-11-07 09:38 | W.ED.SYNCOPE ---
HPI - Syncope General: Chief Complaint: Syncope Stated Complaint: syncope Time Seen by Provider: 11/07/24 09:21 Source: patient and EMS Mode of arrival: EMS Limitations: no limitations History of Present Illness: This patient is a 74-year-old male with past medical history of COPD, obstructive sleep apnea, and recent lobectomy from cancer on 10/21 at [facility] who is presenting to the ED by ambulance after 3 syncopal episodes today. The first episode occurred at home when home health was changing his decubitus ulcer dressing, he was stood up at which time he fell forward. EMS was called and noted hypotension on arrival, he subsequently experienced 2 additional syncopal episodes during transport. There is no reported injuries with his falls. Patient has been reporting generalized weakness and states that he has had some elevated temperatures at home over the past several days but no documented fever, chills, or nausea or vomiting. He further is denying any chest pain, shortness of breath, palpitations, focal neurologic deficits, headache, or vision changes. No abdominal pain, or melena/hematochezia. On arrival to the ED he was normotensive and nontoxic-appearing. He states that he has never had issues with syncopal episodes in the past, states that he is not having any pain from his wound or abnormal drainage. MD complaint: collapsed and other (syncope) Onset (ago): minute(s) -: second(s) Prodromal symptoms: lightheaded Witnessed: Yes - by EMS Context: standing up Associated symptoms: Reports lightheadedness; Deny abdominal pain, chest pain, fever(s), headache(s) or nausea History: other (Recent right lower lobectomy on 10/21) Related Data Home Medications ?Medication ?Instructions ?Recorded ?Confirmed dupilumab 300 mg/2 mL subcutaneous 300 mg SUBCUT .BIWEEKLY 09/02/22 11/07/24 pen injector (Dupixent) famotidine 40 mg tablet (Pepcid) 40 mg PO DAILY 09/21/24 11/07/24 oxycodone 5 mg tablet 5 mg PO Q8H PRN 5 days from [facility]ie 10/28/24 11/07/24 cyclobenzaprine 5 mg tablet 5 mg PO PRN PRN Muscle s[asm 11/07/24 11/07/24 donepezil 10 mg tablet (Aricept) 10 mg PO BEDTIME 11/07/24 11/07/24 gabapentin 300 mg capsule See Rx Instructions .Route .COMPLEX 11/07/24 11/07/24 Previous Rx's ?Medication ?Instructions ?Recorded CPAP machine and supplies #1 ea 04/22/22 clopidogrel 75 mg tablet (Plavix) 75 mg PO DAILY #90 tabs 04/06/24 albuterol sulfate 90 mcg/actuation 2 puff inhalation Q6H PRN 08/05/24 aerosol inhaler shortness of breath or wheezing #34 grams atorvastatin 20 mg tablet 20 mg PO DAILY #90 tabs 08/05/24 evolocumab 140 mg/mL subcutaneous 140 mg SUBCUT .every 14 days #6 mL 08/05/24 pen injector (Repatha SureClick) metoprolol succinate 50 mg 50 mg PO DAILY #90 tabs 08/05/24 tablet,extended release 24 hr montelukast 10 mg tablet 10 mg PO DAILY #90 tabs 08/05/24 (Singulair) olmesartan 20 mg tablet (Benicar) 20 mg PO DAILY #90 tabs 08/05/24 tizanidine 4 mg tablet (Zanaflex) 4 mg PO BEDTIME PRN muscle 08/05/24 spasticity #90 tabs venlafaxine 37.5 mg 37.5 mg PO DAILY #90 caps 08/05/24 capsule,extended release 24 hr (Effexor XR) sulfamethoxazole 800 1 tab PO BID #20 tabs 11/02/24 mg-trimethoprim 160 mg tablet (Bactrim DS) Allergies Allergy/AdvReac Type Severity Reaction Status Date / Time ibuprofen Allergy Unknown Unknown Verified 11/07/24 09:34 Review of Systems General: Reports: 10 or more systems reviewed and unremarkable except in HPI and below Const: Denies: fever(s), chills or fatigue Eyes: Denies: change in vision ENMT: Denies: throat pain, ear or mastoid pain or nasal discharge Card: Reports: lightheadedness and syncope; Denies: chest pain, palpitations or swelling of feet/ankles Resp: Denies: dyspnea, productive cough or wheezing GI: Denies: abdominal pain, nausea, vomiting, diarrhea or constipation : Denies: flank pain, difficulty urinating, dysuria or urinary frequency Musc: Denies: neck pain, back pain or joint pain Skin/Breast: Denies: rash Neuro: Reports: weakness in extremities and dizziness; Denies: headache(s) or numbness in extremities PFSH ED PFSH: Medical History EMMANUELLE on CPAP Erectile dysfunction Elevated PSA Allergic rhinitis due to pollen Mild cognitive impairment, so stated Gastro-esophageal reflux disease without esophagitis COPD (chronic obstructive pulmonary disease) Essential (primary) hypertension Mixed hyperlipidemia Surgical History History of lobectomy of lung Right lower lobe 10/21/24 [place], [place] History of thoracotomy Right lower lobe 10/21/24 [place], [place] History of PTCA 10/11/21 [facility] Hx of cataract extraction History of heart artery stent Family History Mother Lung disease TB Cancer Father CAD (coronary artery disease) at 72 w/MT Denies family history of Diabetes Clotting disorder Dementia Chronic kidney disease (CKD) Suicide Anesthesia complication Bleeding disorder Stroke Social History Smoking and tobacco/nicotine status: never used tobacco/nicotine Second hand smoke exposure: No Alcohol intake: current Alcohol intake frequency: holidays/special occasions only Substance/Drug Use: never Adopted: No Caregiver/support person: No Lives independently: Yes Household members: spouse Housing: House Marital status: Current occupational status: retired Do you think of yourself as: Straight/Heterosexual Current gender identity: Male Physical Exam Const: COMMON NORMALS: no acute distress, patient oriented x3 and no limitations GENERAL APPEARANCE: cooperative, comfortable and well developed ORIENTATION/CONSCIOUSNESS: Yes awake, Yes oriented to person, Yes oriented to place and Yes oriented to time HENMT: COMMON NORMALS: normocephalic, atraumatic and hearing grossly normal bilaterally HEAD & SCALP: normocephalic and atraumatic Eye: COMMON NORMALS: Equal, round and reactive pupils present, EOMs intact bilaterally and conjunctivae normal CONJUNCTIVA: Yes conjunctivae normal PUPIL: Yes Equal, round and reactive pupils present Neck/C-Spine: COMMON NORMALS: full ROM, supple and no JVD Resp: COMMON NORMALS: normal respiratory effort, No retractions, No use of accessory muscles and clear to auscultation bilaterally AUSCULTATION: clear to auscultation bilaterally Cardio: COMMON NORMALS: no JVD, regular rate, regular rhythm, No clicks present (Cardio), No murmurs present (Cardio) and No rub (Cardio) RATE: regular rate RHYTHM: regular rhythm GI: COMMON NORMALS: Normal to inspection, nondistended, normoactive bowel sounds present, Soft to palpation and non-tender AUSCULTATION: Yes normoactive bowel sounds PALPATION: Yes Soft to palpation RECTAL EXAM: Yes deferred Extremity: COMMON NORMALS: normal to inspection, full ROM and capillary refill normal Neuro: COMMON NORMALS: patient oriented x3, CN's II-XII intact bilaterally, moves all extremities, no focal motor deficits and no sensory deficits noted SENSORIUM/ORIENTATION: Yes oriented to person, Yes oriented to place and Yes oriented to time Skin: NARRATIVE SKIN EXAM: Dressing to buttocks region Course Vital Signs: Vital signs: Vital Signs Temperature 97.9 F 11/07/24 09:20 Pulse Rate 77 11/07/24 09:20 Respiratory Rate 16 11/07/24 09:20 Blood Pressure 113/57 11/07/24 09:20 Pulse Oximetry 95 11/07/24 09:20 Oxygen Delivery Me thod Room Air 11/07/24 09:20 MDM - Syncope Medical Decision Making This patient presented for syncopal episode, came by ambulance where home health was changing his decubitus ulcer dressing and he fell forward. On arrival he is grossly orthostatic, of note recently had right lower lobectomy for cancer resection at [facility], this occurred on 10/21. Leukocytosis noted on his lab work along with thrombocytosis, indicating possible acute infection. Evidence of acute kidney injury as well likely hypovolemia with his orthostatics and recent hospitalization, concern that his decubitus ulcer might be infected as well as on examination there is surrounding warmth and erythema noted and it does appear to extend towards the perineum. He is not diabetic. Oxygenation has been well here in the emergency department, and he has been afebrile. Chest x-ray showing right sided hydropneumothorax, I initially spoke to on-call thoracic surgery at [facility] who had stated this was of little concern being that he recently had resection. Plan was to admit the patient to the hospital here for IV rehydration however after CT abdomen and pelvis results, there is new concern for possible empyema to the right lower lobe. For this the patient will transfer to [facility] for further definitive management with thoracic surgery, and he is started on empiric IV vancomycin and Zosyn. He is being given fluids as well for rehydration, and plan is to have the patient travel by helicopter. Patient and family is informed of this plan, all other questions and concerns are addressed. Staffed this patient with Dr. Adelita irizarry in the emergency department. Lab Data 11/07/24 09:51 11/07/24 09:51 Radiology Impressions Chest X-Ray 11/07/24 09:34 IMPRESSION: 1. Interval placement of a right internal jugular injection port. 2. New right-sided hydropneumothorax. ADDENDUM: 11/07/24 1116 THIS REPORT CONTAINS FINDINGS THAT MAY BE CRITICAL TO PATIENT CARE. The findings were verbally communicated via telephone conference at 11:13 AM CDT on 11/07/2024 with TYLER PIZANO. The findings were acknowledged and understood. Head CT 11/07/24 09:35 IMPRESSION: No evidence of acute intracranial pathology. No hemorrhage or other sequela of trauma. Chest/Abdomen/Pelvis CT 11/07/24 12:59 Impression: IMPRESSION: 1. Hydropneumothorax occupying a proximally 15% of the volume of the right hemithorax. 2. Multiple gas bubbles are identified within the posterior right pleural effusion raising the possibility of developing empyema. IMPRESSION: 1. Small indirect fat containing inguinal hernias. 2. No evidence of abdominal or pelvic inflammatory change, mass, or adenopathy C. ADDENDUM: 11/07/24 2966 THIS REPORT CONTAINS FINDINGS THAT MAY BE CRITICAL TO PATIENT CARE. The findings were verbally communicated via telephone conference at 1:56 PM CDT on 11/07/2024 with TYLER PIZANO. The findings were acknowledged and understood. Laboratory Results WBC 15.56 10^3/uL (3.29-11.43) H 11/07/24 09:51 RBC 4.49 10^6/uL (3.85-5.65) 11/07/24 09:51 Hgb 11.50 g/dL (11.27-16.99) 11/07/24 09:51 Hct 37.3 % (37-53) 11/07/24 09:51 MCV 83.1 fl (82-101) 11/07/24 09:51 MCH 25.6 pg (27-33) L 11/07/24 09:51 MCHC 30.8 g/dL (30-55) 11/07/24 09:51 RDW 16.3 % (12.1-15.1) H 11/07/24 09:51 Plt Count 615 10^3/cmm (157-399) H 11/07/24 09:51 MPV 8.4 fL (7.4-10.4) 11/07/24 09:51 Neut % (Auto) 80.7 % 11/07/24 09:51 Lymph % (Auto) 6.8 % 11/07/24 09:51 Archer % (Auto) 8.7 % 11/07/24 09:51 Eos % (Auto) 2.4 % 11/07/24 09:51 Baso % (Auto) 0.6 % 11/07/24 09:51 Neut # (Auto) 12.57 10^3/uL (1.8-7.7) H 11/07/24 09:51 Lymph # (Auto) 1.1 10^3/uL (0.8-4.8) 11/07/24 09:51 Archer # (Auto) 1.4 10^3/uL (0.2-0.9) H 11/07/24 09:51 Eos # (Auto) 0.4 10^3/uL (0.0-0.8) 11/07/24 09:51 Baso # (Auto) 0.1 10^3/uL (0.0-0.1) 11/07/24 09:51 Nucleated RBC % (auto) 0 % 11/07/24 09:51 Nucleated RBCs # 0.0 /100WBC 11/07/24 09:51 ESR 53 mm/hr (0-10) H 11/07/24 09:51 PT 14.50 SECONDS (12.1-14.9) 11/07/24 09:51 INR 1.05 (0.8-1.2) 11/07/24 09:51 APTT 33.1 SECONDS (23.9-36.7) 11/07/24 09:51 Sodium 130 mmol/L (136-145) L 11/07/24 09:51 Potassium 5.1 mmol/L (3.5-5.1) 11/07/24 09:51 Chloride 95 mmol/L (98-107) L 11/07/24 09:51 Carbon Dioxide 21 mmol/L (22-29) L 11/07/24 09:51 Anion Gap 19.1 (5-19) H 11/07/24 09:51 BUN 28 mg/dL (8-23) H 11/07/24 09:51 Creatinine 1.8 mg/dL (0.7-1.2) H 11/07/24 09:51 GFR Calculation Not Reportable 11/07/24 09:51 Glucose 102 mg/dL (65-115) 11/07/24 09:51 Calculated Osmolality 276 mOsm/kg (285-295) L 11/07/24 09:51 Lactic Acid 2.1 mmol/L (0.5-2.2) 11/07/24 09:51 Lactic Acid (Sepsis) 1.0 mmol/L (0.5-2.2) 11/07/24 11:48 Calcium 9.0 mg/dL (8.5-10.5) 11/07/24 09:51 Total Bilirubin 0.4 mg/dL (0.15-1.2) 11/07/24 09:51 AST 12 U/L (0-40) 11/07/24 09:51 ALT 17 U/L (0-41) 11/07/24 09:51 Alkaline Phosphatase 41 U/L (40-130) 11/07/24 09:51 Troponin T Baseline 30 ng/L (0-15) H 11/07/24 09:51 Troponin T 120 Minute 23.30 ng/L (0-15) H 11/07/24 11:48 Delta Troponin T -6.70 ABS# (0-10) L 11/07/24 11:48 Troponin T Hi Sens 6Hr 20.83 ng/L (0-15) H 11/07/24 15:53 Troponin T Hi Sens 6Hr Delta -9.17 ng/L (0-12) L 11/07/24 15:53 C-Reactive Protein 156.4 mg/L (0.0-4.9) H 11/07/24 09:51 Total Protein 6.6 g/dL (6.6-8.7) 11/07/24 09:51 Albumin 3.5 g/dL (3.5-5.2) 11/07/24 09:51 Globulin 3.1 g/dL (1.3-4.6) 11/07/24 09:51 Urine Color Yellow (Yellow) 11/07/24 11:14 Urine Appearance Clear (CLEAR) 11/07/24 11:14 Urine pH 6.0 (5-7) 11/07/24 11:14 Ur Specific [place] 1.014 (1.005-1.030) 11/07/24 11:14 Urine Protein Negative (Negative) 11/07/24 11:14 Urine Glucose (UA) Negative (Normal) 11/07/24 11:14 Urine Ketones Negative (Negative) 11/07/24 11:14 Urine Blood Negative (Negative) 11/07/24 11:14 Urine Nitrate Negative (Negative) 11/07/24 11:14 Urine Bilirubin Negative (Negative) 11/07/24 11:14 Urine Urobilinogen 1.0 mg/dL (Negative) 11/07/24 11:14 Ur Leukocyte Esterase Trace (Negative) A 11/07/24 11:14 Urine RBC 0-2 /hpf (0-2) 11/07/24 11:14 Urine WBC 0-5 /hpf (0-5) 11/07/24 11:14 Ur Squamous Epith Cells 0-5 /hpf (0-5) 11/07/24 11:14 Amorphous Sediment Not Reportable 11/07/24 11:14 Urine Bacteria None seen /hpf (NONE) 11/07/24 11:14 Hyaline Casts 11.97 /lpf 11/07/24 11:14 All radiology interpretation(s) finalized by discharge Discharge Plan Discharge Patient Disposition: Xfer Short-Term Hosp Clinical Impression: Empyema lung, VIOLETTA (acute kidney injury) Condition: Stable Referrals: Lata Solis, SERVICE VEHICLE OPERATOR-C [Primary Care Provider, [facility]] Print Language: Georgian Coding Level of Care Code ED Priming Powder Premix Blender for Sina Anderson
[2024-11-07 09:59] LABS: Hematocrit 37.3 % (37-53); Hemoglobin 11.50 g/dL (11.27-16.99); Mean Corpuscular HGB Conc 30.8 g/dL (30-55); Mean Corpuscular Hemoglobin 25.6 pg (27-33); Mean Corpuscular Volume 83.1 fl (82-101); Nucleated Red Blood Cells % 0 %; Platelet Count 615 10^3/cmm (157-399); Red Blood Count 4.49 10^6/uL (3.85-5.65); White Blood Count 15.56 10^3/uL (3.29-11.43)
[2024-11-07 10:22] LABS: INR 1.05 (0.8-1.2); Prothrombin Time 14.50 SECONDS (12.1-14.9)
[2024-11-07 10:23] LABS: Partial Thromboplastin Time 33.1 SECONDS (23.9-36.7)
[2024-11-07 10:30] LABS: Alanine Aminotransferase 17 U/L (0-41); Albumin Level 3.5 g/dL (3.5-5.2); Alkaline Phosphatase 41 U/L (40-130); Anion Gap 19.1 (5-19); Aspartate Amino Transferase 12 U/L (0-40); Blood Urea Nitrogen 28 mg/dL (8-23); Calcium 9.0 mg/dL (8.5-10.5); Carbon Dioxide 21 mmol/L (22-29); Chloride 95 mmol/L (98-107); Creatinine Clr Calc Pharmacy 39.5492; Globulin 3.1 g/dL (1.3-4.6); Glucose 102 mg/dL (65-115); Lactic Sepsis W/Reflex 2.1 mmol/L (0.5-2.2); Osmolality Calculated 276 mOsm/kg (285-295); Potassium 5.1 mmol/L (3.5-5.1); Sodium 130 mmol/L (136-145); Total Protein 6.6 g/dL (6.6-8.7)
[2024-11-07 10:32] LABS: Troponin(5th) Baseline 30 ng/L (0-15)
[2024-11-07 11:21] LABS: Glucose Urine UA Negative (Normal); Nitrate Urine Negative (Negative); Specific Gravity, Urine 1.014 (1.005-1.030)
[2024-11-07 11:24] LABS: Add Urine Microscopic? YES; Universal Test for UA Present (0)
--- NOTE | 2024-11-07 11:34 | ECG_ITS ---
[facility] Test Date: 2024-11-07 Pat Name: Raul Patiño Department: Room: Gender: Male [employer]: : 1950 Requested By: Tristian Miller Order Number: [id number] Perez MD: Lenny Izaguirre M.D. Measurements Intervals [place] Rate: 75 P: 53 MD: 195 QRS: 48 QRSD: 83 T: 84 QT: 384 QTc: 431 Interpretive Statements SINUS RHYTHM NONSPECIFIC T-WAVE ABNORMALITY Compared to ECG 11/07/2024 09:24:08 No significant changes Electronically Signed On 11-07-2024 20:25:28 CDT by Lenny Izaguirre M.D. [email or web address] [id number]
[2024-11-07 11:40] LABS: UA Slide Review UA Slide Review Perf
[2024-11-07 11:44] LABS: Reflex Lactate Order REFLEX LACTIC ORDERD
[2024-11-07] MEDS: piperacillin-tazobactam 3.375 GM in sodium chloride 0.9% (plus) 50 ML IV (12:06)
[2024-11-07 12:12] LABS: Lactic Acid level (Lactate) 1.0 mmol/L (0.5-2.2); Troponin 5 2HR 23.30 ng/L (0-15)
[2024-11-07 12:25] LABS: Troponin 5 2HR Delta -6.70 ABS# (0-10)
--- NOTE | 2024-11-07 12:59 | CTR_ITS ---
PROCEDURE INFORMATION: Exam: CT Chest With Contrast; Diagnostic Exam date and time: 11/07/2024 1:15 PM Age: 74 years old Clinical indication: Other: Recent rll resection, syncope, decubitus ulcer, leukocytosis; Prior surgery; Surgery date: 1-6 months; Surgery type: Lung TECHNIQUE: Imaging protocol: Diagnostic computed tomography of the chest with contrast. Radiation optimization: All CT scans at this facility use at least one of these dose optimization techniques: automated exposure control; mA and/or kV adjustment per patient size (includes targeted exams where dose is matched to clinical indication); or iterative reconstruction. Contrast material: OMNI 350; Contrast volume: 100 ml; Contrast route: INTRAVENOUS (IV); COMPARISON: PT PET skull to thigh INIT [id number] 09/03/2024 10:49 AM RADIATION DOSE METRICS: Total DLP (mGy-cm): 1276.88 FINDINGS: Lungs: There are inflammatory infiltrate seen in the posterior right lung base consistent with developing pneumonia. Surgical ligatures are identified consistent with patient's history of recent lobectomy. The left lung shows a small Jolanta fissural nodule (4/34) but is otherwise unremarkable. Status post right lower lobectomy. Right lower lobe pneumonia. Pleural spaces: A right hydropneumothorax is identified, occupying approximately 15% of the volume of the right hemithorax. There are multiple gas bubbles seen within the posterior aspect of the right pleural effusion potentially indicating empyema. Heart: The heart size is within normal limits. There is no pericardial effusion. There are coronary artery atherosclerotic changes present. Lymph nodes: No mediastinal or hilar lymphadenopathy is observed. Vasculature: The thoracic aorta shows atheromatous calcification but no evidence of aneurysm or dissection. Bones/joints: There is no acute fracture, lytic, or blastic lesion. Soft tissues: Unremarkable. PROCEDURE INFORMATION: Exam: CT Abdomen And Pelvis With Contrast Exam date and time: 11/07/2024 1:15 PM Age: 74 years old Clinical indication: Other: Recent rll resection, syncope, decubitus ulcer, leukocytosis; Prior surgery; Surgery date: 1-6 months; Surgery type: Lung TECHNIQUE: Imaging protocol: Computed tomography of the abdomen and pelvis with contrast. Radiation optimization: All CT scans at this facility use at least one of these dose optimization techniques: automated exposure control; mA and/or kV adjustment per patient size (includes targeted exams where dose is matched to clinical indication); or iterative reconstruction. Contrast material: OMNI 350; Contrast volume: 100 ml; Contrast route: INTRAVENOUS (IV); COMPARISON: PT PET skull to thigh INIT [id number] 09/03/2024 10:49 AM RADIATION DOSE METRICS: Total DLP (mGy-cm): 1276.88 FINDINGS: Liver: Normal. No mass. Gallbladder and biliary ducts: Normal. No calcified stones. No ductal dilation. Pancreas: Normal. No ductal dilation. Spleen: Normal. No splenomegaly. Adrenal glands: Normal. No mass. Kidneys and ureters: Normal. No hydronephrosis. Stomach and bowel: Unremarkable. No obstruction. No mucosal thickening. Appendix: A normal appendix is visible. Intraperitoneal space: Unremarkable. No free air. No significant fluid collection. Vasculature: Moderate aortoiliac atherosclerotic calcifications are seen without aneurysm or dissection. There are no significant stenoses. Lymph nodes: Unremarkable. No enlarged lymph nodes. Urinary bladder: Unremarkable as visualized. Reproductive: Unremarkable as visualized. Bones/joints: There is no acute fracture, lytic, or blastic lesion. Soft tissues: Small fat containing indirect bilateral inguinal hernias are present. CT/CT chest abdpel w/*[id number] Impression: IMPRESSION: 1. Hydropneumothorax occupying a proximally 15% of the volume of the right hemithorax. 2. Multiple gas bubbles are identified within the posterior right pleural effusion raising the possibility of developing empyema. IMPRESSION: 1. Small indirect fat containing inguinal hernias. 2. No evidence of abdominal or pelvic inflammatory change, mass, or adenopathy C.
[2024-11-07] MEDS: iohexol 350 mg/mL 500 mL Btl (per mL) IV (13:18)
--- NOTE | 2024-11-07 15:34 | ECG_ITS ---
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 Measurements Intervals [place] Rate: 84 P: 51 MD: 202 QRS: 37 QRSD: 90 T: 62 QT: 359 QTc: 426 Interpretive Statements SINUS RHYTHM WITH FREQUENT SUPRAVENTRICULAR PREMATURE COMPLEXES NONSPECIFIC T-WAVE ABNORMALITY ABNORMAL RHYTHM ECG Compared to ECG 11/07/2024 11:34:15 No significant changes Electronically Signed On 11-07-2024 20:23:16 CDT by Lenny Izaguirre M.D. [email or web address] [id number]
[2024-11-07 16:26] LABS: Troponin 5 6HR 20.83 ng/L (0-15)
[2024-11-07 16:31] LABS: Troponin 5 6HR Delta -9.17 ng/L (0-12)
== END 2024-11-07 17:05 | disposition short-term general hospital (02) ==
PROVIDERS: Emergency Provider Physician Assistant; PCP Nurse Practitioner
DX: J43.9 Emphysema, unspecified (principal); N17.9 Acute kidney failure, unspecified; J44.9 Chronic obstructive pulmonary disease, unspecified; E78.2 Mixed hyperlipidemia; Z85.118 Personal history of other malignant neoplasm of bronchus and lung; Z98.890 Other specified postprocedural states
CPT/HCPCS: 36415; 70450; 71045; 71260; 74177; 80053; 81001; 83605; 84484; 85025; 85610; 85651; 85730; 86140; 87040; 93005; 96365; 96366; 96367; 99285; J2543; J3373; J7040; J7050

== ENCOUNTER 2024-12-03 16:46 | Emergency (ER) | payer MEDICARE, OTHER, SELFPAY ==
[2024-12-03 16:46] VITALS: BP 163/70; PULSE 88; RESP 16; TEMP 36.8; O2SAT 94; BMI 27.9
--- NOTE | 2024-12-03 16:50 | PC.NURSE ---
PICC line removed per verbal order of Dr. Daly. catheter intact upon removal. manual pressure applied and wrapped with coban. pt denies pain upon removal.
--- OUTSIDE RECORDS SUMMARY | 2024-12-03 16:59 | XMS_ITS | Continuity of Care Document ---
Author Organization [facility] Address [address] [place] [address] Care Team Providers Care Regional Economic Liaison Name Role Phone Dr. Moody Hurtado DO Attending Physician Medications Medication Frequency Instructions Diagnosis Start Date End Date Last Administered albuterol sulfate 90 mcg/actuation HFA aerosol inhaler Every 4 Hours - PRN 1 puff, inhalation, Every 4 Hours - PRN, for SOB / wheezing 11/23/19 atorvastatin 20 mg tablet At Bedtime 1 tab, oral, At Bedtime 11/23/19 25 11/26/2024 06:07 PM bisacodyl 5 mg tablet,delayed release (DR/EC) Twice A Day 2 tabs (10 mg), oral, Twice A Day 11/23/19 25 11/26/2024 06:07 PM cefepime 1 gram recon soln Twice A Day 1 gm, injection, Twice A Day, for 6 weeks 11/23/19 25 025 11/26/2024 08:58 PM ClearLax (polyethylene glycol 3350) 17 gram/dose powder Once A Day 17 gm, oral, Once A Day, mix in at least 4 oz of fluid of choice 11/23/1911/26/2024 08:09 AM Daily-Betsy (with folic acid) (multivitamin with folic acid) 400 mcg tablet Once A Day 1 tab, oral, Once A Day 11/23/19 25 11/26/2024 08:09 AM donepezil 10 mg tablet At Bedtime 1 tab, oral, At Bedtime 11/23/1911/26/2024 06:07 PM Dulcolax (bisacodyl) (bisacodyl) 10 mg suppository Once A Day - PRN 1 suppository, rectal, Once A Day - PRN, Give rectally if can't take p/o, if no results from [facility] 11/20/19 famotidine 40 mg tablet At Bedtime 1 tab, oral, At Bedtime 11/23/1911/26/2024 06:07 PM gabapentin 300 mg capsule Three Times A Day 1 cap, oral, Three Times A Day, taper dose, for 7 days 11/23/1911/26/2024 06:07 PM Heparin LockFlush(Porcine )(PF) (heparin, porcine (pf)) 100 unit/mL syringe Every Shift 5ml, intravenous, Every Shift, Flush fely-cath with Heparinized NS before and after each use 11/20/1911/26/2024 06:07 PM metronidazole 500 mg tablet Twice A Day 1 tab, oral, Twice A Day, for 6 weeks 11/23/1911/26/2024 06:07 PM montelukast 10 mg tablet At Bedtime 1 tab, oral, At Bedtime 11/23/1911/26/2024 06:07 PM Normal Saline Flush (sodium chloride 0.9 %) - syringe Every Shift - PRN 10 ml, injection, Every Shift - PRN, Flush fely-cath before and after use 11/20/19 Normal Saline Flush (sodium chloride 0.9 %) - syringe Every Shift 3ml, injection, Every Shift, Flush IV with 5ml NS before and after use([facility]) 11/20/1911/26/2024 06:07 PM ondansetron HCl 4 mg tablet Every 4 Hours - PRN 1 tab, oral, Every 4 Hours - PRN, for nausea / vomiting 11/23/19 oxycodone 5 mg tablet Every 4 Hours - PRN 1 tab, oral, Every 4 Hours - PRN, exempt R52, for pain 11/23/1911/25/2024 09:37 PM tizanidine 4 mg tablet At Bedtime - PRN 1 tab, oral, At Bedtime - PRN, for muscle spasms 11/23/1911/22/2024 08:42 PM Tylenol (acetaminophen) 325 mg tablet Every 6 Hours - PRN 2 tabs/650mg, oral, Every 6 Hours - PRN, as needed for PRN pain/increased temp May give rectally if necessary 11/23/1911/22/2024 08:42 PM venlafaxine 37.5 mg capsule,extended release 24hr At Bedtime 1 cap, oral, At Bedtime 11/23/1911/26/2024 06:07 PM Tubersol (tuberculin ppd) 5 tub. unit /0.1 mL solution Once - One Time 0.1ml, intradermal, Once - One Time, Administer the morning after admission 11/24/19 025 Problems Code Type Problem ICD Code Effective Date Status ICD-10 Pressure ulcer of sacral region, stage 4 L89.15 4 11/22/2024 Active ICD-10 Candidiasis, unspecified B37.9 11/23/2024 Active ICD-10 Local infection of t he skin and subcutaneous tissue, unspecified L08.9 11/22/2024 Active ICD-10 Constipation, unspecified K59.00 11/22/2024 Active ICD-10 Muscle weakness (generalized) M62.81 2024 Active ICD-10 Encounter for adjust ment and management of vascular access device Z45.2 11/22/2024 Active ICD-10 Chronic obstructive pulmonary disease, unspecified J44.9 11/22/2024 Active ICD-10 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 0 11/22/2024 Active ICD-10 Personal history of nicotine dependence Z87.891 11/22/2024 Active ICD-10 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 11/22/2024 Active ICD-10 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 11/22/2024 Active ICD-10 Anemia, unspecified D64.9 11/22/2024 Activ e ICD-10 Unspecified dementia , mild, without behavioral disturbance, psychotic disturbance, mood disturbance, and anxiety F03.A0 11/22/2024 Active ICD-10 Unspecified severe p rotein-calorie malnutrition E43 11/22/2024 Active ICD-10 Hyperlipidemia, unspecified E78.5 11/23/19 Active Current Allergies and Intolerances Category Substance Type Reaction Severity Begin Date Status Drug allergy ibuprofen Allergy 11/19/2024 Active Vital Signs Height: 70.0 in Date / Time Temperature Pulse (per minute) Respirations (per minute) Systolic BP (mmHg) Diastolic BP (mmHg) O2 Saturation (%) Weight BMI 2024 09:06 PM 98.0 2024 09:05 PM 98.8 F 83 20 127 88 2024 11:02 AM 97.8 F 70 17 138 80 96.0 2024 07:23 PM 98.4 F 82 16 166 78 97.0 2024 02:25 AM 96.7 F 65 20 123 65 95.0 2024 04:15 PM 189.3 lbs 27.1 6 2024 11:35 AM 98.7 F 83 19 142 87 96.0 2024 07:49 PM 97.9 F 79 17 147 70 94.0 2024 12:34 PM 97.8 F 86 18 133 78 96.0 2024 05:14 PM 189.6 lbs 27.2 2024 05:13 PM 97.9 F 79 19 158 89 97.0 Advance Directives Directive Note Full Code Insurance Providers Payer Policy type Group Name Group number Policy ID Address Phone Medicare Part A Medicare Part A [id number] Phone: Fax: Medicare Part B Medicare Part B [id number] Phone: Fax: Coinsurance A [facility] Commercial Insurance [id number] [address] [address] [place] [address] Phone: Fax: Private Private Phone: Fax: Private Interest Private Phone: Fax: Immunizations Vaccine Human Resource Professional Date Status Dose Series Complete COVID-19 Vaccine 11/22/2024 Refused Influenza Vaccine 11/22/2024 Refused Pneumococcal Vaccine 11/22/2024 Refused RSV Vaccine 11/22/2024 Refused Procedures Not available for this record Results Not available for this record Goals Goal Date Will have positive responses to activities of my choice weekly through next assessment. 01/24/2025 Raul will maintain or improve nutrition al status through next review 02/24/2025 Encounters Admission Date Discharge Date Description MRN Visit Count 11/22/2024 15:50 LTPAC Admission [id number]
--- OUTSIDE RECORDS SUMMARY | 2024-12-03 17:00 | XMS_ITS | Continuity of Care Document ---
Author Organization [employer] ([facility]) Address [address] [place] [address] Insurance Providers Payer Plan Claims Address Claims Phone Policy Number Group Number Relation Employer Guarantor Name Guarantor Guarantor Address Guarantor Phone [employer] [address] [address], [place] [id number] Self Raul Patiño [address] [place] [id number] [employer] are [address] [address], [place] [address] tel:[phone] [id number] [phone] Self Raul Patiño [address] [place], [place] [id number] [employer] [address] [address] [id number] Self Raul Patiño [address] [place] [id number] Problems Condition ICD9 code ICD10 code SNOMED code Start Date End Date S tatus Unspecified open wound of lower back and pelvis without penetration into retroperitoneum, subsequent encounter S31.000D 11/22/2024 Acti ve Local infection of the skin and subcutaneous tissue, unspecified L08.9 11/22/2024 Activ e Encounter for adjustment and management of vascular access device Z45.2 11/22/2024 Ac tive Chronic obstructive pulmonary disease, unspecified J44.9 11/22/2024 Active 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 11/22/2024 Active Personal history of nicotine dependence Z87.891 11/22/2024 Activ e Atherosclerotic heart disease of [place] coronary artery without angina pectoris I25.10 11/22/2024 Active 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 11/22/2024 Active Anemia, unspecified D64.9 11/22/2024 A ctive Unspecified dementia, mild, without behavioral disturbance, psychotic disturbance, mood disturbance, and anxiety F03.A0 11/22/2024 Active Unspecified severe protein-calorie malnutrition E43 11/22/2024 Active Hyperlipidemia, unspecified E78.5 11/22/2024 Active Constipation, unspecified K59.00 11/22/2024 Active Candidiasis, unspecified B37.9 11/23/2024 Active Pressure ulcer of sacral region, stage 4 L89.154 11/22/2024 Active Muscle weakness (generalized) M62.81 11/23/2024 Active Difficulty in walking, not elsewhere classified R26.2 11/25/2024 Active Depression, unspecified F32.A 11/29/2024 Active Anxiety disorder, unspecified F41.9 11/29/2024 Active Squamous cell carcinoma of skin, unspecified C44.92 11/25/2024 Acti ve Mild protein-calorie malnutrition E44.1 11/25/2024 Active Results Test Result Date/Time Value / Unit Interp. Refere nce Range Tuberculosis reaction wheal[ 08542-6] Tuberculosis reaction wheal [22950-7] 11/28/2024 05:00 PM 0 mm NEG Allergies, adverse reactions, alerts Substance Reaction Date Status Type ibuprofen 11/19/2024 Non Drug Immunizations Vaccine Route Date Status RSV Vaccine Unassigned Route of Administration 2024 Refused COVID-19 Vaccine Unassigned Route of Administration Completed COVID-19 Vaccine Unassigned Route of Administration Completed COVID-19 Vaccine Unassigned Route of Administration Completed COVID-19 Vaccine Unassigned Route of Administration Completed Medications Medication Instructions Route Dosage Frequency Start Date Stop Date Indications Status Dulcolax (bisacodyl) (bisacodyl) 10 mg suppository (Dulcolax (bisacodyl) (bisacodyl)) 1 suppository, rectal, Once A Day - PRN, Give rectally if can't take p/o, if no results from [facility] rectal 1.0 1.0 d 2024 Active Heparin LockFlush(Porc ine)(PF) (heparin, porcine (pf)) 100 unit/mL syringe (Heparin LockFlush(Porc ine)(PF) (heparin, porcine (pf))) 5ml, intravenous, Every Shift, Flush fely-cath with Heparinized NS before and after each use intravenous 1.0 8.0 h 2024 Active Normal Saline Flush (sodium chloride 0.9 %) - syringe (Normal Saline Flush (sodium chloride 0.9 %)) 10 ml, injection, Every Shift - PRN, Flush fely-cath before and after use 1.0 8.0 h 2024 Active albuterol sulfate 90 mcg/actuation HFA aerosol inhaler (albuterol sulfate) 1 puff, inhalation, Every 4 Hours - PRN, for SOB / wheezing inhalation 1.0 4.0 h 2024 Active atorvastatin 20 mg tablet (atorvastatin) 1 tab, oral, At Bedtime oral 1.0 2024 Active bisacodyl 5 mg tablet,delayed release (DR/EC) (bisacodyl) 2 tabs (10 mg), oral, Twice A Day oral 1.0 12.0 h 2024 Active cefepime 1 gram recon soln (cefepime) 1 gm, injection, Twice A Day, for 6 weeks 1.0 12.0 h 01/03 Active ClearLax (polyethylene glycol 3350) 17 gram/dose powder (ClearLax (polyethylene glycol 3350)) 17 gm, oral, Once A Day, mix in at least 4 oz of fluid of choice oral 1.0 1.0 d 2024 Active Daily-Ebtsy (with folic acid) (multivitamin with folic acid) 400 mcg tablet (Daily-Betsy (with folic acid) (multivitamin with folic acid)) 1 tab, oral, Once A Day oral 1.0 1.0 d 2024 Active donepezil 10 mg tablet (donepezil) 1 tab, oral, At Bedtime oral 1.0 2024 Active famotidine 40 mg tablet (famotidine) 1 tab, oral, At Bedtime oral 1.0 2024 Active gabapentin 300 mg capsule (gabapentin) 1 cap, oral, Three Times A Day, taper dose, for 7 days oral 1.0 8.0 h 11/29 Active metronidazole 500 mg tablet (metronidazole ) 1 tab, oral, Twice A Day, for 6 weeks oral 1.0 12.0 h 01/03 Active montelukast 10 mg tablet (montelukast) 1 tab, oral, At Bedtime oral 1.0 2024 Active ondansetron HCl 4 mg tablet (ondansetron HCl) 1 tab, oral, Every 4 Hours - PRN, for nausea / vomiting oral 1.0 4.0 h 2024 Active oxycodone 5 mg tablet (oxycodone) 1 tab, oral, Every 4 Hours - PRN, exempt R52, for pain oral 1.0 4.0 h 2024 Active tizanidine 4 mg tablet (tizanidine) 1 tab, oral, At Bedtime - PRN, for muscle spasms oral 1.0 2024 Active Tylenol (acetaminophen ) 325 mg tablet (Tylenol (acetaminophen )) 2 tabs/650mg, oral, Every 6 Hours - PRN, as needed for PRN pain/increase d tempMay give rectally if necessary oral 1.0 6.0 h 2024 Active venlafaxine 37.5 mg capsule,extend ed release 24hr (venlafaxine) 1 cap, oral, At Bedtime oral 1.0 2024 Active Tubersol (tuberculin ppd) 5 tub. unit /0.1 mL solution (Tubersol (tuberculin ppd)) 0.1ml, intradermal, Once - One Time, Administer the morning after admission intradermal 1.0 11/23 Active Tubersol (tuberculin ppd) 5 tub. unit /0.1 mL solution (Tubersol (tuberculin ppd)) 0.1ml, intradermal, Once - One Time, Administer on the day shift intradermal 1.0 11/28 Active gabapentin 300 mg capsule (gabapentin) 1 cap, oral, Twice A Day, taper dose, for 7 days oral 1.0 12.0 h 12/06 Active Santyl (collagenase clostridium histo.) 250 unit/gram ointment (Santyl (collagenase clostridium histo.)) nickel thick to wound bed, topical, Every Shift, Sacral wound: Cleanse with ns and gauze, apply santyl to wound bed then apply ns damp gauze to wound bed, cover with abd pad and secure with tape topical 1.0 8.0 h 2024 Active Vital Signs Date Vital Result Comment 11/22/2024 05:14 PM Body Height (8302-2) 70 [in_us] Body Weight (91149-7) 189.6 [lb_av] Body Mass Index (59910-6) 27.2 kg/m2 11/22/2024 05:13 PM Temperature (8310-5) 97.9 [degF] Oxygen Saturation (44583-3) 97 % Respiratory Rate (9279-1) 19 /min Heart Rate (8867-4) 79 /min Blood Pressure Systolic (8480-6) 158 mm[Hg] Blood Pressure Diastolic (8462-4) 89 mm[Hg] 11/23/2024 12:34 PM Temperature (8310-5) 97.8 [degF] Oxygen Saturation (94792-6) 96 % Respiratory Rate (9279-1) 18 /min Heart Rate (8867-4) 86 /min Blood Pressure Systolic (8480-6) 133 mm[Hg] Blood Pressure Diastolic (8462-4) 78 mm[Hg] 11/23/2024 07:49 PM Temperature (8310-5) 97.9 [degF] Oxygen Saturation (92414-1) 94 % Respiratory Rate (9279-1) 17 /min Heart Rate (8867-4) 79 /min Blood Pressure Systolic (8480-6) 147 mm[Hg] Blood Pressure Diastolic (8462-4) 70 mm[Hg] 11/24/2024 04:15 PM Body Weight (28874-8) 189.3 [lb_av ] Body Mass Index (87412-5) 27.16 kg/m2 11/24/2024 11:35 AM Temperature (8310-5) 98.7 [degF] Oxygen Saturation (28479-3) 96 % Respiratory Rate (9279-1) 19 /min Heart Rate (8867-4) 83 /min Blood Pressure Systolic (8480-6) 142 mm[Hg] Blood Pressure Diastolic (8462-4) 87 mm[Hg] 11/25/2024 02:25 AM Temperature (8310-5) 96.7 [degF] Oxygen Saturation (20411-7) 95 % Respiratory Rate (9279-1) 20 /min Heart Rate (8867-4) 65 /min Blood Pressure Systolic (8480-6) 123 mm[Hg] Blood Pressure Diastolic (8462-4) 65 mm[Hg] 11/25/2024 07:23 PM Temperature (8310-5) 98.4 [degF] Oxygen Saturation (88450-5) 97 % Respiratory Rate (9279-1) 16 /min Heart Rate (8867-4) 82 /min Blood Pressure Systolic (8480-6) 166 mm[Hg] Blood Pressure Diastolic (8462-4) 78 mm[Hg] 11/26/2024 11:02 AM Temperature (8310-5) 97.8 [degF] Oxygen Saturation (49690-7) 96 % Respiratory Rate (9279-1) 17 /min Heart Rate (8867-4) 70 /min Blood Pressure Systolic (8480-6) 138 mm[Hg] Blood Pressure Diastolic (8462-4) 80 mm[Hg] 11/26/2024 09:06 PM Oxygen Saturation (07228-0) 98 % 11/26/2024 09:05 PM Temperature (8310-5) 98.8 [degF] Respiratory Rate (9279-1) 20 /min Heart Rate (8867-4) 83 /min Blood Pressure Systolic (8480-6) 127 mm[Hg] Blood Pressure Diastolic (8462-4) 88 mm[Hg] 11/27/2024 11:39 PM Temperature (8310-5) 97.7 [degF] Heart Rate (8867-4) 71 /min 11/27/2024 06:38 PM Temperature (8310-5) 97.6 [degF] Oxygen Saturation (30444-5) 99 % Respiratory Rate (9279-1) 18 /min Heart Rate (8867-4) 71 /min Blood Pressure Systolic (8480-6) 121 mm[Hg] Blood Pressure Diastolic (8462-4) 69 mm[Hg] 11/27/2024 11:40 PM Oxygen Saturation (46842-9) 97 % Respiratory Rate (9279-1) 19 /min Blood Pressure Systolic (8480-6) 118 mm[Hg] Blood Pressure Diastolic (8462-4) 62 mm[Hg] 11/28/2024 08:36 AM Temperature (8310-5) 97.8 [degF] Heart Rate (8867-4) 67 /min 11/28/2024 08:37 AM Oxygen Saturation (77513-5) 96 % Respiratory Rate (9279-1) 19 /min Blood Pressure Systolic (8480-6) 125 mm[Hg] Blood Pressure Diastolic (8462-4) 65 mm[Hg] 11/28/2024 08:11 PM Temperature (8310-5) 98.7 [degF] Oxygen Saturation (63543-3) 98 % Respiratory Rate (9279-1) 18 /min Heart Rate (8867-4) 87 /min Blood Pressure Systolic (8480-6) 120 mm[Hg] Blood Pressure Diastolic (8462-4) 74 mm[Hg] 11/29/2024 08:17 AM Temperature (8310-5) 97.8 [degF] Oxygen Saturation (45995-7) 96 % Respiratory Rate (9279-1) 18 /min Heart Rate (8867-4) 72 /min Blood Pressure Systolic (8480-6) 124 mm[Hg] Blood Pressure Diastolic (8462-4) 74 mm[Hg] 11/29/2024 07:31 PM Temperature (8310-5) 98 [degF] Oxygen Saturation (11757-4) 94 % Respiratory Rate (9279-1) 19 /min Heart Rate (8867-4) 88 /min Blood Pressure Systolic (8480-6) 143 mm[Hg] Blood Pressure Diastolic (8462-4) 65 mm[Hg] 11/30/2024 08:58 AM Temperature (8310-5) 97.6 [degF] Oxygen Saturation (34013-2) 95 % Respiratory Rate (9279-1) 20 /min Heart Rate (8867-4) 83 /min Blood Pressure Systolic (8480-6) 108 mm[Hg] Blood Pressure Diastolic (8462-4) 72 mm[Hg] 11/30/2024 07:52 PM Temperature (8310-5) 98.4 [degF] Oxygen Saturation (33256-4) 95 % Respiratory Rate (9279-1) 20 /min Heart Rate (8867-4) 75 /min Blood Pressure Systolic (8480-6) 132 mm[Hg] Blood Pressure Diastolic (8462-4) 65 mm[Hg] 12/01/2024 11:46 AM Body Weight (72914-6) 197.8 [lb_av ] Body Mass Index (94674-0) 28.38 kg/m2 12/01/2024 10:57 AM Temperature (8310-5) 97.4 [degF] Oxygen Saturation (59471-0) 94 % Respiratory Rate (9279-1) 18 /min Heart Rate (8867-4) 68 /min Blood Pressure Systolic (8480-6) 128 mm[Hg] Blood Pressure Diastolic (8462-4) 70 mm[Hg] 12/01/2024 06:52 PM Temperature (8310-5) 97.8 [degF] Oxygen Saturation (74606-4) 94 % Respiratory Rate (9279-1) 18 /min Heart Rate (8867-4) 74 /min Blood Pressure Systolic (8480-6) 130 mm[Hg] Blood Pressure Diastolic (8462-4) 80 mm[Hg] 12/02/2024 03:22 PM Temperature (8310-5) 96.9 [degF] Oxygen Saturation (90103-4) 95 % Respiratory Rate (9279-1) 20 /min Heart Rate (8867-4) 81 /min Blood Pressure Systolic (8480-6) 145 mm[Hg] Blood Pressure Diastolic (8462-4) 87 mm[Hg] 12/02/2024 07:25 PM Temperature (8310-5) 96.2 [degF] Oxygen Saturation (47956-3) 94 % Respiratory Rate (9279-1) 20 /min Heart Rate (8867-4) 98 /min Blood Pressure Systolic (8480-6) 121 mm[Hg] Blood Pressure Diastolic (8462-4) 62 mm[Hg] Social History No smoking Hx information available Encounters Type CPT Code Date Location Provider Indication s encounter report 11/22/2024 03:50 PM Rosmery Carpioft DO 01 Advance Directives Directive Description Verification Date Supporting Document(s) Other Directive
--- NOTE | 2024-12-03 17:11 | PC.NURSE ---
this nurse was able to flush both lumens on PICC line, flushes well. when having pt adjust arm position able to obtain blood draw from both lumens but only 1 out of the 2 lumens at a time. pt denies any pain/numbness.
--- NOTE | 2024-12-03 17:14 | XRR_ITS ---
PROCEDURE INFORMATION: Exam: XR Chest Exam date and time: 12/03/2024 5:18 PM Age: 74 years old Clinical indication: Cough and dyspnea; Additional info: Dyspnea/cough TECHNIQUE: Imaging protocol: Radiologic exam of the chest. Views: 1 view. COMPARISON: 1. CT chest abdpel w/*[id number] 11/07/2024 1:15 PM 2. CR (CHEST, ) 11/07/2024 10:27 AM FINDINGS: Tubes, catheters and devices: Right internal jugular Port-A-Cath is unchanged. A left upper extremity PICC catheter is in place, with the tip in the distal SVC. Lungs: Unchanged right lung base consolidation. Unchanged mild parenchymal disease in the left costophrenic sulcus. No left lung consolidation. Pleural spaces: Increasing right hemithorax volume loss, which appears to relate to increasing right pleural effusion and persistent right lung base consolidation. Interval resolution of right pneumothorax. No left effusion or left pneumothorax. Heart/Mediastinum: Unremarkable. No cardiomegaly. Bones/joints: Unremarkable. XR/XR chest 1V portable [id number] IMPRESSION: 1. Resolution of right pneumothorax with slight interval increase in moderate, loculated right effusion. 2. Persistent right lower lung consolidation.
--- NOTE | 2024-12-03 17:23 | W.ED.GENADLT ---
HPI - General Adult General: Chief complaint: General Medical Stated complaint: picc line not drawing Time Seen by Provider: 12/03/24 16:47 History of Present Illness: 74-year-old male presents to the emergency room with complaints of difficulty with the PICC line. Patient had surgery at [facility] developed a sacral decub he now has an open wound with a wound VAC on he is getting long-term IV antibiotics he has a history of lung cancer they have the surgery at [facility] is for a lung cancer resection. He has a port and he also has a PICC line PICC line is in the left upper arm to have difficulty with drawing blood at the [facility] with it. On arrival here it does flush although somewhat slowly. No fever sweats chills no other specific complaints or problems. Associated symptoms: Deny chest pain, dyspnea or rash Related Data Home Medications ?Medication ?Instructions ?Recorded ?Confirmed dupilumab 300 mg/2 mL subcutaneous 300 mg SUBCUT .BIWEEKLY 09/02/22 11/07/24 pen injector ([facility]) famotidine 40 mg tablet (Pepcid) 40 mg PO DAILY 09/21/24 11/07/24 oxycodone 5 mg tablet 5 mg PO Q8H PRN 5 days from [facility] 10/28/24 11/07/24 cyclobenzaprine 5 mg tablet 5 mg PO PRN PRN Muscle s[asm 11/07/24 11/07/24 donepezil 10 mg tablet (Aricept) 10 mg PO BEDTIME 11/07/24 11/07/24 gabapentin 300 mg capsule See Rx Instructions .Route .COMPLEX 11/07/24 11/07/24 Previous Rx's ?Medication ?Instructions ?Recorded CPAP machine and supplies #1 ea 04/22/22 clopidogrel 75 mg tablet (Plavix) 75 mg PO DAILY #90 tabs 04/06/24 albuterol sulfate 90 mcg/actuation 2 puff inhalation Q6H PRN 08/05/24 aerosol inhaler shortness of breath or wheezing #34 grams atorvastatin 20 mg tablet 20 mg PO DAILY #90 tabs 08/05/24 evolocumab 140 mg/mL subcutaneous 140 mg SUBCUT .every 14 days #6 mL 08/05/24 pen injector (Luan Modi) metoprolol succinate 50 mg 50 mg PO DAILY #90 tabs 08/05/24 tablet,extended release 24 hr montelukast 10 mg tablet 10 mg PO DAILY #90 tabs 08/05/24 (Singulair) olmesartan 20 mg tablet (Benicar) 20 mg PO DAILY #90 tabs 08/05/24 tizanidine 4 mg tablet (Zanaflex) 4 mg PO BEDTIME PRN muscle 08/05/24 spasticity #90 tabs venlafaxine 37.5 mg 37.5 mg PO DAILY #90 caps 08/05/24 capsule,extended release 24 hr (Effexor XR) sulfamethoxazole 800 1 tab PO BID #20 tabs 11/02/24 mg-trimethoprim 160 mg tablet (Bactrim DS) Allergies Allergy/AdvReac Type Severity Reaction Status Date / Time ibuprofen Allergy Unknown Unknown Verified 11/07/24 09:34 Review of Systems Const: Denies: fever(s) or chills Card: Denies: chest pain Resp: Denies: dyspnea GI: Denies: abdominal pain : Denies: dysuria, urinary frequency or urinary urgency Musc: Denies: neck pain or back pain Skin/Breast: Denies: rash PFSH ED PFSH: Medical History EMMANUELLE on CPAP Erectile dysfunction Elevated PSA Allergic rhinitis due to pollen Mild cognitive impairment, so stated Gastro-esophageal reflux disease without esophagitis COPD (chronic obstructive pulmonary disease) Essential (primary) hypertension Mixed hyperlipidemia Surgical History History of lobectomy of lung Right lower lobe 10/21/24 [place], [place] History of thoracotomy Right lower lobe 10/21/24 [place] History of PTCA 10/11/21 [facility] Hx of cataract extraction History of heart artery stent Family History Mother Lung disease TB Cancer Father CAD (coronary artery disease) at 72 w/AK Denies family history of Diabetes Clotting disorder Dementia Chronic kidney disease (CKD) Suicide Anesthesia complication Bleeding disorder Stroke Social History Smoking and tobacco/nicotine status: never used tobacco/nicotine Second hand smoke exposure: No Alcohol intake: current Alcohol intake frequency: holidays/special occasions only Substance/Drug Use: never Adopted: No Caregiver/support person: No Lives independently: Yes Household members: spouse Housing: House Marital status: Current occupational status: retired Do you think of yourself as: Straight/Heterosexual Current gender identity: Male Physical Exam Const: COMMON NORMALS: no acute distress GENERAL APPEARANCE: cooperative and comfortable ORIENTATION/CONSCIOUSNESS: Yes awake, Yes oriented to person, Yes oriented to place and Yes oriented to time HENMT: COMMON NORMALS: normocephalic, atraumatic and hearing grossly normal bilaterally HEAD & SCALP: normocephalic and atraumatic Resp: COMMON NORMALS: normal respiratory effort, No retractions, No use of accessory muscles and clear to auscultation bilaterally AUSCULTATION: clear to auscultation bilaterally Cardio: COMMON NORMALS: regular rate, regular rhythm and No murmurs present (Cardio) RATE: regular rate RHYTHM: regular rhythm GI: COMMON NORMALS: Soft to palpation and No hepatosplenomegaly present AUSCULTATION: Yes normoactive bowel sounds PALPATION: Yes Soft to palpation, No Tenderness to palpation present (GI), No Guarding due to palpation present (GI) and Yes No hepatosplenomegaly present Extremity: COMMON NORMALS: normal to inspection, capillary refill normal, no clubbing, cyanosis or edema, no calf tenderness and no pedal edema OTHER: Examination of the entrance site of the VAC on the medial aspect left upper arm no signs of infection no drainage. Neuro: SENSORIUM/ORIENTATION: Yes oriented to person, Yes oriented to place and Yes oriented to time Skin: OTHER: Presacral decubitus wound VAC wound VAC not removed Course Vital Signs: Vital signs: Vital Signs Temperature 98.2 F 12/03/24 16:46 Pulse Rate 84 12/03/24 18:15 Respiratory Rate 16 12/03/24 16:46 Blood Pressure 130/61 12/03/24 18:15 Pulse Oximetry 96 12/03/24 18:15 Oxygen Delivery Me thod Room Air 12/03/24 16:46 MDM - General Adult Medical Decision Making Chest x-ray shows persistent right lung effusion no pneumothorax. PICC line is retracted some into the axilla. On exam when we attempt to flush it it is not flushing well and he cannot draw from it. Unfortunately do not have anyone available to replace PICC line at this time. Placed a forearm IV which can be used through the weekend to continue his IV antibiotics with scheduled him in 3 days to return to outpatients to have his PICC line replaced current PICC line was removed. Medical Records I reviewed the patient's medical records. Lab Data I reviewed the patient's lab results. Radiology Impressions Chest X-Ray 12/03/24 17:14 IMPRESSION: 1. Resolution of right pneumothorax with slight interval increase in moderate, loculated right effusion. 2. Persistent right lower lung consolidation. All radiology interpretation(s) finalized by discharge Discharge Plan Discharge Patient Disposition: Home Clinical Impression: Occluded PICC line Condition: Stable Prescriptions: No Action (DME) CPAP machine and supplies See Rx Instructions .ROUTE .MEDSUPPLY Qty: 1 0RF Rx Instructions: As directed auto titrating cpap 5-20cm with supplies 99 month Dupixent Pen 300 mg/2 mL pen injector 300 mg SUBCUT .BIWEEKLY atorvastatin 20 mg tablet 20 mg PO DAILY Qty: 90 1RF albuterol sulfate 90 mcg/actuation HFA aerosol inhaler 2 puff INHALATION Q6H PRN (Reason: shortness of breath or wheezing) Qty: 34 5RF Repatha SureClick 140 mg/mL pen injector 140 mg SUBCUT .every 14 days Qty: 6 1RF metoprolol succinate 50 mg tablet extended release 24 hr 50 mg PO DAILY Qty: 90 1RF montelukast [Singulair] 10 mg tablet 10 mg PO DAILY Qty: 90 1RF olmesartan [Benicar] 20 mg tablet 20 mg PO DAILY Qty: 90 1RF tizanidine [Zanaflex] 4 mg tablet 4 mg PO BEDTIME PRN (Reason: muscle spasticity) Qty: 90 1RF venlafaxine [Effexor XR] 37.5 mg capsule,extended release 24hr 37.5 mg PO DAILY Qty: 90 1RF sulfamethoxazole-trimethoprim [Bactrim DS] 800-160 mg tablet 1 tab PO BID Qty: 20 0RF oxycodone 5 mg tablet 5 mg PO Q8H PRN (Reason: 5 days from [facility]) Plavix 75 mg tablet 75 mg PO DAILY Qty: 90 3RF famotidine [Pepcid] 40 mg tablet 40 mg PO DAILY gabapentin 300 mg capsule See Rx Instructions .ROUTE .COMPLEX Rx Instructions: Take 1 capsule by mouth r times a day for 20 days , then 1 capsule by mouth 2 times a day for 5 days , then 1 capsule nightly for 5 days . cyclobenzaprine 5 mg tablet 5 mg PO PRN PRN (Reason: Muscle s[asm) donepezil [Aricept] 10 mg tablet 10 mg PO BEDTIME Discharge Orders: Discharge ED (Routine); Ordered 12/03/24 Ordered By: Stuart Daly Referrals: Lata Solis FNP-C [Primary Care Provider, Family Practice] Discharge Diet: Usual diet Discharge Activity: Resume usual activity Patient Instructions: Opioid Safety, Pain Management, Patient Portal & Dick Instructions Activity Restrictions/Additional Instructions: [facility] for your healthcare needs today. It is very important that you follow up as instructed or that you return to the Emergency Department should you have concerns or if your condition changes or worsens in any way. Emergency department visits are focused on emergent conditions, in some cases you may require further evaluation on an outpatient basis. You are seen emergency room with difficulty with your PICC line and appears to be malpositioned and no longer functional. The PICC line is removed we placed an IV to use for the weekend on Friday you are scheduled to return to the hospital to have a new PICC line placed. You will use the IV that was placed in the ER at this visit through the weekend for your IV antibiotics. (Please note that included in your discharge packet is information concerning opioid safety and pain management. This information is given to all patients were discharged from the ER regardless of their discharge diagnosis or the medicines they usually take or are prescribed.) Print Language: Welsh Coding Level of Care Code ED Junior Qa Analyst for Sina Anderson
--- NOTE | 2024-12-03 17:35 | PC.NURSE ---
per Gianna at [facility], PICC line was placed ~3 weeks ago at [facility] d/t severe staph infection. pt receiving 1g Cefepime BID IV infusion over 30 min until 01/03/2025. Per nurse, last time she worked and assessed PICC was on 11/29, states both lumens were flushing and drawing blood appropriately, states uses saline flush and heparin lock flush post each abx infusion. nurse reports during abx infusion pump stating occlusion when pt lifts arm up. nurse requesting IV insertion or port access upon d/c if PICC line not cleared for usage.
[2024-12-03 18:15] VITALS: BP 130/61; PULSE 84; O2SAT 96
--- NOTE | 2024-12-03 18:38 | PC.NURSE ---
report called to OR nurse, no further questions at this time.
== END 2024-12-03 18:39 | disposition home or self-care (01) ==
PROVIDERS: Emergency Provider Family Medicine; PCP Nurse Practitioner
DX: T82.594A Other mechanical complication of infusion catheter, initial encounter (principal); E78.2 Mixed hyperlipidemia; J44.9 Chronic obstructive pulmonary disease, unspecified; I10 Essential (primary) hypertension; X58.XXXA Exposure to other specified factors, initial encounter
CPT/HCPCS: 71045; 99283

== ENCOUNTER → 2024-12-06 11:38 | Day surgery (SDC) | payer MEDICARE, OTHER, SELFPAY ==
[2024-12-06 10:20] VITALS: BP 133/66; PULSE 89; RESP 18; TEMP 35.9; O2SAT 96
--- NOTE | 2024-12-06 11:44 | PICC.NOTE ---
Pt presented to ED on 12/03/24 for sluggish PICC line to left arm. PICC placed at [place] prior to presentation to ED. PICC line pulled in ED and pt placed on OPS schedule for PICC insertion today. Upon assessment, pt noted to have port to right chest. Pt states he comes to [facility] monthly for port flushes and there is no problem with port to his knowledge. Pt states he is not currently on chemo. Discussed risks and benefits of replacing PICC line. Advocated for use of already placed CVC for antibiotic therapy. Pt agreed he would prefer to use device in place over placing another PICC. Called [facility] and spoke to Felisa ASHLEY. Orders received to access port for continued IV antibiotic therapy. Port accessed using sterile technique. Brisk blood return noted. Flushed with 20 mL NS without difficulty. Peripheral IV to left forearm dc'd that was placed in ED. [facility] Suggest[facility] follow up appointments at [facility] for weekly port needle changes until antibiotic therapy completed 01/03/25. Pt is already established pt of Dr. Jarrett.
== END ==
LOC: GILAB 11:38
PROVIDERS: PCP Nurse Practitioner; Visit Provider Internal Medicine
DX: B37.9 Candidiasis, unspecified (principal)
CPT/HCPCS: 96523

== ENCOUNTER 2024-12-28 16:06 | Outpatient (CLI) | payer OTHER, MEDICARE, SELFPAY ==
--- NOTE | 2024-12-28 16:13 | CTR_ITS ---
PROCEDURE INFORMATION: Exam: CT Abdomen And Pelvis With Contrast Exam date and time: 12/28/2024 5:05 PM Age: 74 years old Clinical indication: Condition or disease; Other: Pressure ulcer of sacral region; Primary cancer: Lung; Prior surgery; Surgery date: 6+ months; Surgery type: RT lower lobe TECHNIQUE: Imaging protocol: Computed tomography of the abdomen and pelvis with contrast. Radiation optimization: All CT scans at this facility use at least one of these dose optimization techniques: automated exposure control; mA and/or kV adjustment per patient size (includes targeted exams where dose is matched to clinical indication); or iterative reconstruction. Contrast material: OMNI 350; Contrast volume: 100 ml; Contrast route: INTRAVENOUS (IV); COMPARISON: Chest, abdomen, and pelvis CT from 11/07/2024 RADIATION DOSE METRICS: Total DLP (mGy-cm): 784.16 FINDINGS: Lungs: Postsurgical changes in the right infrahilar region are present. There is right basilar atelectasis. Pleural spaces: As compared to the prior CT, there is diminished size of the previously defined posterior right basilar loculated pleural fluid with foci of air. Thick rim enhancement again suggest persistent small empyema at the posterior right CP angle. Coronary arteries: There is coronary artery calcification. Liver: There is a lesion within the dorsal dome of the right hepatic lobe within segment 7 near the posterior CP angle abutting the hemidiaphragm. This measures 22 x 21 mm. In retrospect I believe this was present previously measuring at that time 9 mm. The liver otherwise enhances normally. Gallbladder and biliary ducts: Normal. No calcified stones. No ductal dilation. Pancreas: Normal. No ductal dilation. Spleen: Normal. No splenomegaly. Adrenal glands: Normal. No mass. Kidneys and ureters: There is a small probable cortical cyst in the midportion of the left kidney too small to characterize. This is stable. Stomach and bowel: There is a small stool ball within the rectum. The sigmoid colon is slightly elongated and redundant. There is a moderate amount of stool throughout the colon. Appendix: No evidence of appendicitis. Intraperitoneal space: Unremarkable. No free air. No significant fluid collection. Vasculature: The abdominal aorta is normal in caliber with moderate atherosclerotic calcification. Lymph nodes: Unremarkable. No enlarged lymph nodes. Urinary bladder: The bladder is incompletely distended. Reproductive: Unremarkable as visualized. Bones/joints: Best defined on sagittal sequencing at the level of the decubitus ulcer, there is now concavity to the dorsal edge of the 1st coccygeal segment as seen on image 40 and 41 of series 8. This is a change in appearance when directly compared to the CT from 11/07/2024. There is degenerative changes throughout the lumbar spine. Soft tissues: There is subcutaneous inflammatory changes and skin thickening at the superomedial left gluteal crease dorsal to the coccyx consistent with the history of decubitus ulcer. Inflammatory changes track within the subcutaneous fat to the region of the sacral hiatus. There is no CT evidence of drainable fluid collection. CT/CT abdomen pelvis w con* [id number] IMPRESSION: 1. Sacral decubitus ulcer as detailed without evidence of underlying drainable fluid collection. Again there is some interval osseous concavity to the dorsal edge of coccygeal segment 1 when directly compared to the previous imaging on sagittal sequencing. This is concerning for osteomyelitis focally in this position. 2. Diminished size of posteroinferior right CP angle empyema. 3. Enlarging lesion within the dorsal dome of the right hepatic lobe adjacent to the empyema. This raises concern for possible hepatic extension of infection and small hepatic abscess. 4. Atherosclerotic disease
[2024-12-28] MEDS: iohexol 350 mg/mL 500 mL Btl (per mL) IV (17:35)
== END 2024-12-28 16:07 | disposition home or self-care (01) ==
LOC: RAD 16:06
PROVIDERS: PCP Nurse Practitioner; Visit Provider Internal Medicine
DX: L89.159 Pressure ulcer of sacral region, unspecified stage (principal); R93.89 Abnormal findings on diagnostic imaging of other specified body structures; K76.89 Other specified diseases of liver; R91.8 Other nonspecific abnormal finding of lung field; J98.11 Atelectasis; J94.8 Other specified pleural conditions; I25.10 Atherosclerotic heart disease of native coronary artery without angina pectoris; N28.1 Cyst of kidney, acquired; I70.0 Atherosclerosis of aorta; M47.896 Other spondylosis, lumbar region; M79.89 Other specified soft tissue disorders
CPT/HCPCS: 74177

== ENCOUNTER → 2025-01-04 10:29 | Outpatient (BNVA) | payer MEDICARE, OTHER, SELFPAY | PROVIDERS: PCP Nurse Practitioner; Visit Provider Internal Medicine Medical Oncology | DX: C34.2 Malignant neoplasm of middle lobe, bronchus or lung (principal); Z98.890 Other specified postprocedural states; K76.89 Other specified diseases of liver; L89.899 Pressure ulcer of other site, unspecified stage; Z95.828 Presence of other vascular implants and grafts | CPT/HCPCS: 99214 ==

== ENCOUNTER → 2025-01-07 09:24 | Outpatient (BNVA) | payer MEDICARE, OTHER, SELFPAY | PROVIDERS: PCP Nurse Practitioner; Visit Provider Thoracic Surgery (Cardiothoracic Vascular Surgery) | DX: L89.153 Pressure ulcer of sacral region, stage 3 (principal) | CPT/HCPCS: 11042; 99213 ==

== ENCOUNTER 2025-01-07 13:00 | Oncology outpatient (recurring) (ONCR) | payer OTHER, MEDICARE, SELFPAY ==
--- NOTE | 2025-01-07 13:30 | PETR_ITS ---
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 Then, PET images were obtained. Attenuation corrected images were constructed using the CT scan. Fused images of PET and CT were reviewed. The standardized uptake values (SUV) reported below are maximum values within a region of interest, expressed in gm/ml. Exam includes orbital meatal line to mid-thigh. SUV normalization method: BodyWeight Radiopharmaceutical: 11.2 mCi F-18 FDG (Fluorodeoxyglucose), IV. Time of imaging post radiopharmaceutical administration: 44 minutes Injection site: right hand COMPARISON: 1. PT PET skull to thigh INIT [id number] 09/03/2024 10:[address] abdomen pelvis w con* [id number] 12/28/2024 5:[address] chest abdpel w/*[id number] 11/07/2024 1:15 PM FINDINGS: Brain: Visualized brain has normal physiologic uptake. Pharynx: No abnormal uptake. Larynx: Symmetric FDG uptake without underlying CT abnormality is likely physiologic. Lungs, pleura and trachea: Status post right lower lobectomy. Intervally stable small right pleural effusion containing small air lucencies with associated mildly FDG avid pleural thickening. Mild emphysematous change. Heart: Normal physiologic uptake. Thin curvilinear lateral left ventricle subendocardial fat density suggestive of chronic infarct. Coronary arteries: Moderate coronary artery calcification. Mediastinal space: No abnormal uptake. Liver: Mildly increased size ovoid 2.9 cm long hypodense right posterior superior liver lesion with peripheral FDG uptake showing SUV max 16.2 on axial image 138, new from comparison PET-CT. Gallbladder and biliary ducts: No abnormal uptake. Pancreas: No abnormal uptake. Spleen: No abnormal uptake. Adrenal glands: No abnormal uptake. Kidneys and ureters: Normal physiologic uptake. Stomach and bowel: No abnormal uptake. Reproductive: Prostatomegaly. No abnormal uptake. Vasculature: No abnormal uptake. Heavy systemic atherosclerotic calcification without aortic aneurysm. Lymph nodes: Previous FDG avid right hilar lymphadenopathy has resolved. Mildly prominent right upper paratracheal lymph nodes with low-level FDG uptake showing couple nodes measuring up to 7 mm in the short axis with SUV max 2.8 on axial image 84. Skeleton: Postsurgical deformity at the posterolateral right 6th rib. Mild sacrococcygeal erosive change subjacent to overlying ulcer. Degenerative changes along the spine, shoulders and sacroiliac joints. Soft tissues: Similar FDG avid lateral right chest wall soft tissue thickening overlying ribs at site of prior surgery. Sacral decubitus ulcer with associated FDG avid soft tissue thickening and mild subjacent sacrococcygeal erosive change. Small bilateral fat containing inguinal hernias. METRICS: Mediastinal blood pool: SUV mean 2.1 Liver uptake: SUV mean 2.7 PET/PET skull to thigh SUBS [id number] IMPRESSION: 1. Intervally stable small right pleural effusion with features suggesting empyema. 2. Mildly increased size peripherally FDG avid 2.9 cm long hypodense posterior superior right liver lesion. Favor abscess, metastasis not entirely excluded. 3. Similar FDG avid lateral right chest wall soft tissue thickening overlying ribs at site of prior surgery likely represents postsurgical inflammation. 4. Mildly prominent right paratracheal lymph nodes with low-level FDG uptake may be reactive, cannot exclude metastasis. 5. Sacral decubitus ulcer with associated FDG avid soft tissue thickening. Mild subjacent sacrococcygeal erosive change concerning for osteomyelitis. 6. Additional chronic and incidental findings as above.
== END 2025-01-23 23:59 | disposition home or self-care (01) ==
LOC: ONCMED 01-10 10:17
PROVIDERS: PCP Nurse Practitioner; Visit Provider Radiology Radiation Oncology
DX: C34.2 Malignant neoplasm of middle lobe, bronchus or lung; J90 Pleural effusion, not elsewhere classified; K76.89 Other specified diseases of liver; R93.89 Abnormal findings on diagnostic imaging of other specified body structures; R59.0 Localized enlarged lymph nodes; L89.159 Pressure ulcer of sacral region, unspecified stage; Z90.2 Acquired absence of lung [part of]; J92.9 Pleural plaque without asbestos; J43.9 Emphysema, unspecified; I25.10 Atherosclerotic heart disease of native coronary artery without angina pectoris; I70.0 Atherosclerosis of aorta; R93.7 Abnormal findings on diagnostic imaging of other parts of musculoskeletal system; M47.9 Spondylosis, unspecified; M19.011 Primary osteoarthritis, right shoulder; M19.012 Primary osteoarthritis, left shoulder; M46.1 Sacroiliitis, not elsewhere classified; M79.89 Other specified soft tissue disorders; K40.20 Bilateral inguinal hernia, without obstruction or gangrene, not specified as recurrent; Z53.9 Procedure and treatment not carried out, unspecified reason
CPT/HCPCS: 78815; A9552

== ENCOUNTER → 2025-01-11 14:29 | Outpatient (BNVA) | payer MEDICARE, OTHER, SELFPAY | PROVIDERS: PCP Nurse Practitioner; Visit Provider Internal Medicine Cardiovascular Disease | DX: I25.10 Atherosclerotic heart disease of native coronary artery without angina pectoris (principal); E78.2 Mixed hyperlipidemia; I10 Essential (primary) hypertension; Z90.2 Acquired absence of lung [part of]; Z87.891 Personal history of nicotine dependence | CPT/HCPCS: 99214 ==

== ENCOUNTER → 2025-01-13 13:21 | Outpatient (BNVA) | payer MEDICARE, OTHER, SELFPAY | PROVIDERS: PCP Nurse Practitioner; Visit Provider Thoracic Surgery (Cardiothoracic Vascular Surgery) | DX: I96 Gangrene, not elsewhere classified (principal); L89.153 Pressure ulcer of sacral region, stage 3 | CPT/HCPCS: 97597; 97605; A6237; A6250 ==

== ENCOUNTER 2025-01-27 15:34 | Oncology outpatient (recurring) (ONCR) | payer MEDICARE, OTHER, SELFPAY | END 2025-02-23 23:59 | disposition home or self-care (01) | PROVIDERS: PCP Nurse Practitioner; Visit Provider Radiology Radiation Oncology | DX: Z45.2 Encounter for adjustment and management of vascular access device (principal); Z95.828 Presence of other vascular implants and grafts; E55.9 Vitamin D deficiency, unspecified; I10 Essential (primary) hypertension | CPT/HCPCS: 80053; 80061; 82306; 82607; 84443; 85025; 96523; 97597; 97605 ==

== ENCOUNTER → 2025-02-03 10:08 | Outpatient (BNVA) | payer MEDICARE, OTHER, SELFPAY | PROVIDERS: PCP Nurse Practitioner; Visit Provider Thoracic Surgery (Cardiothoracic Vascular Surgery) | DX: L89.153 Pressure ulcer of sacral region, stage 3 (principal) | CPT/HCPCS: 97597; A6237 ==

== ENCOUNTER → 2025-02-10 10:58 | Outpatient (BNVA) | payer MEDICARE, OTHER, SELFPAY | PROVIDERS: PCP Nurse Practitioner; Visit Provider Thoracic Surgery (Cardiothoracic Vascular Surgery) | DX: L89.153 Pressure ulcer of sacral region, stage 3 (principal) | CPT/HCPCS: 97597; A6210 ==